=== PATIENT | male | born 1955 | race Caucasian/White ===

== ENCOUNTER 2019-05-22 07:21 | Inpatient (IN) | payer MEDICARE ==
[2019-05-22] MEDS ORDERED: Lorazepam 2 MG/ML VIAL ONE (08:01)
[2019-05-22 08:07] LABS: Lactic Acid 1.1 mmol/L (0.5-2.2)
[2019-05-22] MEDS ORDERED: Haloperidol Lactate 5 MG/ML VIAL ONE (08:10)
[2019-05-22 08:46] LABS: Actual Bicarbonate (HCO3a) 21.3 mEq/L (22-28); Analyzer IN Cardio ER; Base Excess (BEa) -1.2 mEq/L (-2.0 to +3.0); CO2 Tension 28.5 mmHg (35.0-45.0); Calcium, Ionized 1.16 mmol/L (1.12-1.30); Carboxyhemoglobin (COHb) 0.3 gm% (0.0-3.0); Hemoglobin (Hb) 10.7 g/dL (14.0-18.0); O2 Tension (PaO2) 92.1 mmHg (> 80.0); Potassium - ABG Lab 3.45 mmol/L (3.70-5.30); pH, Arterial 7.49 (7.35-7.45)
[2019-05-22 08:49] LABS: ALV-art Gradient 22.005 (0-20); Puncture Site RBRACH
[2019-05-22] MEDS ORDERED: Dextrose 5 % And 0.9 % NaCl 1,000 ML IV SCH ×2 (09:45→14:42)
[2019-05-22] MEDS ORDERED: Calcium Carbonate 500 MG ChewTAB PO PRN (10:22)
[2019-05-22] MEDS ORDERED: Bisacodyl 10 MG SUPP PR PRN (10:22)
[2019-05-22] MEDS ORDERED: Ondansetron ODT 4 MG TAB PO PRN (10:22)
[2019-05-22] MEDS ORDERED: Ondansetron PF 4 MG/2 ML Vial IVP PRN (10:22)
--- NOTE | 2019-05-22 10:23 | HP ---
PRIMARY CARE PHYSICIAN: Dr. Colmenares in [place]. CHIEF COMPLAINT: Transfer from [facility] for hospital admission. The patient currently resides at [facility]. HISTORY OF PRESENT ILLNESS: The patient is a 64-year-old male with alcoholic cirrhosis, hypertension, obesity, and chronic sacral wound, currently residing at [facility], presented to the emergency room with above complaints. The patient initially presented to [facility] and was transferred to this facility for hospital admission. The patient was admitted at [facility] in March of this year for infected sacral wound. Infectious Disease was consulted. He received aggressive wound care and was discharged on oral Levaquin to fpc facility. He was also started on Aldactone and was advised to follow up with GI as outpatient. The patient was sent to the emergency room for altered mentation. At this time , no history is available from the patient. The [facility] record does not have any HPI. It only has the labs and the imaging report. No family at the bedside. Per ER record, the patient was found to have altered mentation. He was walking down in the halls, confused. He was found to have elevated ammonia level. He received Zosyn and vancomycin and was transferred to this facility. His workup at [place] included a CBC that showed WBC of 10.4 with hemoglobin 10.9, hematocrit 30.5, and platelet count of 145. Ammonia of 101, it was 31 a month ago. Chemistry showed sodium 138, potassium 4, chloride 101, bicarb 22, BUN of 65, creatinine 1.49, glucose of 122, AST 27, ALT 21, protein of 6.5, bilirubin 1.1, alkaline phosphatase 106, lipase was 34. TSH was normal. INR 1.2 with PT of 15. Lactic acid 1.6. Urinalysis was negative for wbc or bacteria. CT head without contrast was negative for acute findings. CT scan of the abdomen and pelvis without contrast showed right perianal fistula without any evidence of osteomyelitis. It also showed cirrhosis with splenomegaly, ascites, and diffuse subcutaneous edema. He received vancomycin, 80 mg Protonix, IV fluids, 100 mcg fentanyl, Zosyn, 2 mg Haldol, and 20 g of lactulose. At this facility, he had ABG that showed pH of 7.49 with pCO2 28.5, bicarbonate 21.3, O2 saturation 92.1. His repeat lactic acid was 1.1. PAST MEDICAL HISTORY: From review of record, 1. Alcoholic cirrhosis. 2. Hypertension. 3. Morbid obesity. 4. History of cardiac arrhythmias, details unavailable. 5. Recurrent ascites, requiring paracentesis. 6. Chronic sacral wound stage IV. 7. CKD. 8. History of recurrent falls. PAST SURGICAL HISTORY: 1. Multiple paracentesis. 2. Tonsillectomy. ALLERGIES: THE PATIENT IS ALLERGIC TO CODEINE. CURRENT MEDICATIONS: At [facility], Benadryl as needed, Lasix 40 mg twice a day, metolazone 2.5 mg daily, midodrine 5 mg b.i.d., nystatin cream twice a day, Protonix 40 mg daily, prednisone 5 mg daily, and Aldactone 75 mg daily. SOCIAL HISTORY: The patient currently resides at [facility]. There is no history of smoking. He has a history of heavy alcohol use in the past per ER records. FAMILY HISTORY: Mother with fibromyalgia. CODE STATUS: Do not resuscitate at the nursing facility. This needs to be verified with the family. Please note that there are no family at the bedside. DPOA needs to be verified. REVIEW OF SYSTEMS: Cannot be obtained from the patient due to current cognitive status. PHYSICAL EXAMINATION: VITAL SIGNS: Current vital signs; temperature 98, respirations 20, pulse rate of 99, blood pressure of 139/69 with O2 saturation of 99% on room air. GENERAL: A 64-year-old male with altered mentation. He is in mild respiratory distress. HEENT: Head; atraumatic, normocephalic. Sclerae anicteric. Dry mucous membranes. No oral lesion. Pupils were 4 mm with good response to light. NECK: Supple. No JVD appreciated. No carotid bruit. LUNGS: Showed diminished air entry at bilateral bases. No wheezing, rales, or rhonchi. HEART: S1, S2 present. Tachycardic. No heaves or pulsation. ABDOMEN: Distended. There is fluid thrill. No rebound or guarding. Bowel sounds are present. EXTREMITIES: 2 to 3+ edema in bilateral lower extremity. SKIN: Warm and dry. 12 x 8 cm stage III sacral ulcer with small amount of purulent material noted in the sacral area per ER report. LYMPH NODES: No palpable lymph nodes in the neck. PERIPHERAL VASCULAR: Radial pulses palpable bilaterally. MUSCULOSKELETAL: No joint or swelling tenderness. LABORATORY FINDINGS: As discussed above. EKG by my review showed sinus tachycardia. Portable CXR ordered. IMPRESSION: 1. Toxic metabolic encephalopathy secondary to elevated ammonia/hepatic encephalopathy. 2. Infected sacral decubitus ulcer stage III with right perianal fistula. 3. Decompensated cirrhosis with splenomegaly, ascites, and diffuse anasarca. 4. Hypertension. 5. Chronic kidney disease stage 3. PLAN: The patient will be monitored on the telemetry unit. We will start him on lactulose if he is able to tolerate. If not, then we will consider NG tube or rectal lactulose. We will continue empiric antibiotics. Consult Wound Care. Consult Gastroenterology and Infectious Disease. ?paracentesis - will await GI input. Recheck labs in a.m. Monitor vancomycin level. Attempted to call the family with no answer. Palliative care team consultation. We will discuss the plan of care with the family when they arrive. Job ID: [id number] [facility]
--- NOTE | 2019-05-22 11:49 | RAD ---
Exam: Chest one view HISTORY:Altered mental status. Comparison: None FINDINGS: Cardiac silhouette:Normal Aorta: Slightly elongated Pulmonary vessels: Slightly prominent. Costophrenic angles: Clear LUNGS: Patchy interstitial opacities. Pneumothorax: None Osseous abnormalities: None IMPRESSION: Volume overload.
[2019-05-22 13:44] LABS: Anion Gap 18 mmol/L (10-20); BUN (Urea Nitrogen) 60 mg/dL (8.4-25.7); Calc. Creatinine Clearance 92 mL/min (70-130); Calcium 9.3 mg/dL (7.8-10.44); Carbon Dioxide 22 mmol/L (23-31); Chloride 103 mmol/L (98-107); Estimated GFR-MDRD 49; Glucose 116 mg/dL (80-115); Potassium 3.5 mmol/L (3.5-5.1); Sodium 139 mmol/L (136-145)
[2019-05-22] MEDS: Piperacillin/Tazobactam 3.375 GM in Sodium Chloride 0.9% 100 ML IVPB SCH ×2 (14:31→21:06)
[2019-05-22] MEDS ORDERED: Furosemide 100 MG in Sodium Chloride 0.9% 90 ML IVPB SCH (15:15)
[2019-05-22 15:30] LABS: #Eosinphils 0.1 thou/uL (0.0-0.7); #Lymphocytes 0.7 thou/uL (1.20-3.40); #Monocytes 0.8 thou/uL (0.11-0.59); #Neutrophils 7.4 thou/uL (1.40-6.50); %Basophils 0.1 % (0.0-1.0); %Eosinophils 1.2 % (0.0-10.0); %Lymphocytes 7.4 % (21.0-51.0); %Monocytes 9.4 % (0.0-10.0); %Neutrophils 81.9 % (42.0-75.0); Hemoglobin 9.9 g/dL (14.0-18.0); Mean Corpuscular Volume 93.9 fL (78.0-98.0); Mean Platelet Volume 6.3 fL (7.4-10.4); Platelet Count 125 thou/uL (130-400); RBC Distribution Width 12.7 % (11.5-14.5); Red Blood Cell (RBC) Count 3.09 mill/uL (4.70-6.10)
[2019-05-22 15:36] LABS: INR-International Normal Ratio 1.3; PTT 30.4 SEC (22.9-36.1); Prothrombin Time 15.9 SEC (12.0-14.7)
[2019-05-22] MEDS ORDERED: Lidocaine 1% PF 5 ML VIAL ONE (15:51)
[2019-05-22] MEDS ORDERED: Sodium Bicarbonate 2.5 MEQ/5 ML VIAL ONE (15:51)
[2019-05-22 18:15] LABS: BF Color Yellow; Body Fluid Source Ascites Body Fluid; Clarity Hazy (Clear); Tube # EDTA; WBC Background Count 0.01
[2019-05-22 18:16] LABS: RBC Background Count 0.001; WBC/NonHematic-Auto 232 /cumm
[2019-05-22 18:17] LABS: BF RBC Count - Manual 83 /cumm
[2019-05-22] MEDS: Dextrose 5 % And 0.9 % NaCl 1,000 ML IV SCH (18:26)
[2019-05-22 18:44] LABS: BF Segmented Neutrophils 11 %; Cell Count Non Hematic 59 %; Lymphocytes 30 %
[2019-05-22] MEDS: Enoxaparin Sodium 30 MG/0.3 ML SYRINGE SC SCH (21:06)
[2019-05-22] MEDS: Nystatin Powder 15 GM BOT TOP SCH (21:06)
[2019-05-22] MEDS: Pantoprazole 40 MG VIAL IVP SCH (21:06)
[2019-05-22] MEDS: Rifaximin 550 MG TAB PO SCH (21:06)
--- NOTE | 2019-05-23 00:25 | CON ---
DATE OF CONSULTATION: REASON FOR CONSULT: History of decompensated cirrhosis. HISTORY OF PRESENT ILLNESS: Mr. Montemayor is a 64-year-old gentleman who is transferred here from [facility] in [place] where he was transferred apparently from a skilled unit in [place] for confusion and abnormal behavior. He apparently was found confused, walking the halls. It seems that he typically gets his care at [facility]. He has been evaluated recently in the [place] ER apparently for cirrhosis, ascites, weakness, and falls and in March for wound infection and "abscess." He was apparently in the [place] [facility] facility when he was transferred to the ER sometime early this morning. In the emergency room, he was given Haldol and Ativan. His albumin was 3.7, AST and ALT were 27 and 21. Electrolytes were normal. Lipase was 34. INR was 1.2. White count was 10.4, hemoglobin was 10.6, platelet count was 145. CAT scan of the abdomen and pelvis showed splenomegaly, cirrhosis, ascites, bladder thickening, diverticulosis "right perianal fistula." He had a CAT scan of his brain, showed no acute findings. Apparently, there were no beds available at [facility], so he was transferred here. Apparently, he had blood cultures, wound cultures, occult blood test all drawn. TSH was normal. Troponins were negative. Urinalysis was negative. I have been asked to see him with regard to encephalopathy and cirrhosis. Presently, he is without complaints of pain. His ammonia was reported to be over 100, but I do not see that in any referring records. He is awake and knows some of his history, knows where he is, but he still remains a bit foggy. He denies any pain. Nurses report he has had 2 doses of lactulose, but has had no bowel movements yet. Per the admitting records, he received Zosyn and vancomycin in the emergency room in [place] before he was shipped here. The records keep referring to the fact that he may have had a perianal fistula. He is not aware of this. PAST MEDICAL HISTORY: 1. Cirrhosis. He reports he was a heavy drinker in the past. Denies any history of hepatitis. 2. Hypertension. 3. Morbid obesity. 4. History of ascites requiring paracentesis. It sounds like he does these at [facility]. 5. Chronic sacral wound, stage 4. 6. Chronic kidney disease. 7. History of recurrent falls. PAST SURGICAL HISTORY: He denies any abdominal surgery or rectal surgeries. He has had multiple paracenteses and tonsillectomies. ALLERGIES: CODEINE. CURRENT MEDICATIONS: At the [facility], he was receiving; 1. Benadryl. 2. Lasix 40 mg twice a day. 3. Metolazone 2.5 mg one time a day. 4. Midodrine 5 mg twice a day. 5. Nystatin. 6. Protonix. 7. Prednisone 5 mg. 8. Aldactone 25 mg. Does not seem he was on any lactulose or medications for encephalopathy. It is unclear if he is on those when he was in the outpatient setting. REVIEW OF SYSTEMS: Unable to be obtained. FAMILY HISTORY: Noncontributory. SOCIAL HISTORY: He was at [facility]. It is unclear how long he was there or where he was before that. The patient notes he was a heavy drinker in the past. PHYSICAL EXAMINATION: GENERAL: He is morbidly obese, lying in bed. He is in no distress. VITAL SIGNS: Temperature is 97.4. He has been afebrile. Pulse 105-108, blood pressure 143/71. HEENT: He has sainz facies. He has spider angioma on the chest. He has some temporal wasting, muscle wasting. LUNGS: Clear. HEART: Regular without clicks, rubs, or murmurs. ABDOMEN: Soft, very protuberant. Shifting dullness and fluid waves are present. There is no palpable hepatosplenomegaly. EXTREMITIES: Reveal edema and venous stasis. RECTAL: Reveals no overt fistulas or fissures in the anal vault. He has a huge ulcer of the skin which appears to be a large decubitus ulcer, which goes very close to the anorectal verge, but it does not seem to be a fistula tract here on my exam. IMAGING: Chest x-ray, possible volume overload. He has had a paracentesis, therapeutic. No studies were sent. ASSESSMENT: 1. Cirrhosis, presumptively alcohol-related, although it is unclear as the patient is not reliable. 2. Hepatic encephalopathy, probably worsened by Ativan given in the outside emergency room. It is unclear if he has had issues with this in the past. He does not know if he takes lactulose at home, but thinks he does. He was not getting it at the prison unit in [place]. He is mentating a little bit better now. He has had 2 doses of lactulose, he will need more. 3. A large decubitus ulcer and the referring records refer to a perirectal abscess or fistula. I do not detect this on my digital exam. I think this is probably all pressure ulcer in the skin, but it comes very close to the anorectal verge. We will ask the Surgery look at tomorrow to make sure that they do not think this is perirectal in origin. The nurses note they did not see any stool coming out of it. The base appears clear. He is going to need wound care as well. 4. Possible infection. He has received antibiotics, he had cultures in [place] and those will need to be checked. He was tapped, I will ask the Lab if they can order a cell count differential on that fluid. RECOMMENDATIONS: 1. Cell count differential on ascitic fluid. 2. Continue antibiotics. 3. diuretics to get a bit more clear picture of where he is hemodynamically, his BUN is 16 and creatinine 1.44. 4. We will add some Xifaxan to the lactulose and give him extra dose now. He should not receive any benzodiazepines unless he is having a seizure and needs to not be receiving any Benadryl or sedatives or narcotics. We will follow along with you. Job ID: [id number]
[2019-05-23] MEDS: Piperacillin/Tazobactam 3.375 GM in Sodium Chloride 0.9% 100 ML IVPB SCH ×4 (02:14→20:51)
[2019-05-23 06:24] LABS: #Eosinphils 0.2 thou/uL (0.0-0.7); #Lymphocytes 0.9 thou/uL (1.20-3.40); #Monocytes 1.1 thou/uL (0.11-0.59); #Neutrophils 7.7 thou/uL (1.40-6.50); %Basophils 0.2 % (0.0-1.0); %Eosinophils 1.6 % (0.0-10.0); %Lymphocytes 9.2 % (21.0-51.0); %Monocytes 11.3 % (0.0-10.0); %Neutrophils 77.7 % (42.0-75.0); Hemoglobin 10.3 g/dL (14.0-18.0); Mean Corpuscular HGB CONC 33.5 g/dL (32.0-36.0); Mean Corpuscular Hemoglobin 31.8 pg (27.0-31.0); Mean Corpuscular Volume 94.8 fL (78.0-98.0); Mean Platelet Volume 6.6 fL (7.4-10.4); Platelet Count 146 thou/uL (130-400); RBC Distribution Width 12.9 % (11.5-14.5); Red Blood Cell (RBC) Count 3.24 mill/uL (4.70-6.10); White Blood Cell (WBC) Count 9.9 thou/uL (4.8-10.8)
[2019-05-23 06:33] LABS: Hemoglobin A1c 4.8 % (4.0-6.0)
[2019-05-23 07:12] LABS: ALT (SGPT) 19 U/L (8-55); AST (SGOT) 25 U/L (5-34); Albumin 3.5 g/dL (3.4-4.8); Alkaline Phosphatase 94 U/L (40-150); Anion Gap 17 mmol/L (10-20); BUN (Urea Nitrogen) 50 mg/dL (8.4-25.7); Bilirubin, Total 1.8 mg/dL (0.2-1.2); Calc. Creatinine Clearance 83 mL/min (70-130); Calcium 9.3 mg/dL (7.8-10.44); Carbon Dioxide 21 mmol/L (23-31); Chloride 106 mmol/L (98-107); Estimated GFR-MDRD 47; Globulin 2.5 g/dL (2.4-3.5); Glucose 105 mg/dL (80-115); Magnesium 1.3 mg/dL (1.6-2.6); Phosphorus 3.8 mg/dL (2.3-4.7); Potassium 3.5 mmol/L (3.5-5.1); Sodium 140 mmol/L (136-145)
[2019-05-23 07:14] LABS: CRP (Inflammatory) 2.74 mg/dL (= or < 0.5)
[2019-05-23] MEDS ORDERED: Artificial Tears 18 DROP/0.9 ML EA EYE PRN (07:28)
[2019-05-23] MEDS ORDERED: Sodium Chloride 0.65% Nasal 44 ML BOT EA NARE PRN (07:28)
[2019-05-23] MEDS ORDERED: Cepastat Lozenges 1 LOZ PO PRN (07:28)
[2019-05-23] MEDS ORDERED: hydrALAZINE 20 MG/ML VIAL SLOW IVP PRN (07:28)
[2019-05-23 07:31] LABS: Ferritin 377.15 ng/mL (22-322)
[2019-05-23 07:45] LABS: HBCM Index 0.07 S/CO (0-0.79); HBSAg Index 0.27 S/CO (0-0.99); Hep A IgM AB Non-Reactive (NonReactive); Hep A IgM S/CO 0.08 S/CO (0-0.79); Hep B Surf Ag Non-Reactive S/CO (NonReactive); Hep C IgG Ab Non-Reactive (NonReactive); Hep C Index 0.12 S/CO (0-0.79); Hepatitis B Core IgM Abs Non-Reactive (NonReactive)
[2019-05-23] MEDS: Pantoprazole 40 MG VIAL IVP SCH ×2 (08:27→20:51)
[2019-05-23] MEDS: Rifaximin 550 MG TAB PO SCH ×2 (08:27→20:52)
[2019-05-23] MEDS: Nystatin Powder 15 GM BOT TOP SCH ×2 (08:28→20:52)
[2019-05-23] MEDS: Dextrose 5 % And 0.9 % NaCl 1,000 ML IV SCH ×2 (08:28→16:44)
--- NOTE | 2019-05-23 10:10 | ULT ---
ULTRASOUND GUIDED PARACENTESIS: HISTORY: Ascites. COMPARISON: None. FINDINGS: Successful ultrasound-guided paracentesis. A total of 3 liters of yellow-color ascites was aspirated . No immediate or postprocedure complication. TECHNIQUE: Consent was obtained to perform an ultrasound-guided paracentesis. The patient's abdomen was evaluat ed. Right lower quadrant was deemed appropriate. The skin was prepped and draped in a sterile fashi on. 1% Lidocaine, buffered with sodium bicarbonate, was used for local anesthesia. Under ultrasound guidance, a 5 cm 7 Swiss [employer] catheter was advanced into the peritoneal space. Via vacuum bottles, a total of 3 liters of yellow-color ascites was aspirated. The patient tolerated the procedure well . No immediate or postprocedure complication. IMPRESSION: Successful ultrasound-guided paracentesis. POS: OFF
--- NOTE | 2019-05-23 11:58 | CON ---
DATE OF CONSULTATION: 05/23/2019 REASON FOR CONSULTATION: Pressure areas with ulceration in the perianal region. HISTORY OF PRESENT ILLNESS: A 64-year-old with history of alcoholism, who reportedly stopped drinking large amounts of vodka just a few months ago. Also with liver cirrhosis, portal hypertension, ascites, and hepatic encephalopathy, who has developed a perianal wound. Reportedly, he had a surgical procedure done by his primary physician in [place], Dr. Chisholm. I do not have records of that procedure and we will try to contact Dr. Chisholm regarding it. He developed encephalopathy because he was unable to comply with his lactulose due to profuse diarrhea induced by the medication and he developed worsening altered mental status and was admitted. Previously, he had been admitted to [facility] for similar reason. He did have infected perianal wound and was treated with aggressive wound care and oral levofloxacin. Right now, he is status post paracentesis. He has been given lactulose 20 g four times daily. He also was given Zosyn. He is much more alert. He knows where he is. He follows commands, pleasant. Denies headaches. No visual symptoms, sore throat, odynophagia, or dysphagia. No cough or sputum production. No chest pain. No abdominal pain or back pain. He has minimal tenderness at the site of the ulcerated region. No genitourinary symptoms. 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 His mental status has improved markedly since admission. PAST MEDICAL HISTORY: Alcoholism with abstinence reported since February of this year, hypertension, obesity, liver cirrhosis with portal hypertension and hepatic encephalopathy, recurrent paracentesis for therapeutic reasons, perianal wound, and falls. ALLERGIES: CODEINE. MEDICATIONS: He is currently on; 1. Lactulose. 2. Zosyn. 3. DuoNeb. 4. Dulcolax. 5. Tums. 6. Lovenox. 7. Nystatin. 8. Zofran. 9. Protonix. 10. Rifaximin. FAMILY HISTORY: Fibromyalgia. SOCIAL HISTORY: He is currently a resident at [facility]. 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 Lives in [place] by himself. Never . PHYSICAL EXAMINATION: VITAL SIGNS: T-max 98.4, blood pressure 117/60, pulse 102, respirations 16, and O2 saturation 98. GENERAL: Appears in no distress. Knows where he is, knows the date. Sometimes , he gets the sequence of events a little bit wrong and misplaced, but for the most part his account is accurate. His speech appears to be normal. SKIN: Shows these wide area of ulceration in the right side of the gluteal region inner aspect abutting the perianal region with a 100% granulation with some undermining. This is markedly improved when compared with the findings noticeable at the recent [facility] admission, where photos could be compared. There is very little erythema around the area mostly maceration of the skin. Not true cellulitis. Does not have Mcdonald catheter. Has a peripheral IV access. No lymphadenopathy. Some areas with spider angiomata in the anterior chest. HEENT: Ocular movements conjugate. Sclerae white. Conjunctivae normal. Oral cavity with some missing teeth. Oral mucosa normal. NECK: Supple. No jugular vein distention. No carotid bruits. No thyromegaly. No neck tenderness. No shoulder tenderness. LUNGS: With symmetric clear breath sounds. No wheezing. HEART: S1 and S2. Regular rate. No S3 or S4. No murmurs. ABDOMEN: Distended with some ascites, but less than yesterday. No tenderness. No bladder distention. No organomegaly. No lower back tenderness. He is weak, but he is able to bear weight and stand up firmly. : His genital area appears normal. EXTREMITIES: There is evidence of osteoarthrosis in knees and ankles. There is a 2+ edema in lower extremities and some element of lymphedema as well as stasis and dermatitis. Pulses are diminished in dorsalis pedis, but that is probably from the edema. Some evidence of onychodystrophy. He is able to move extremities equally. He is diffusely weak, but no focal weakness. He knows his name. He knows where he is and the date and speech appears to be normal. Calculation normal. LABORATORY DATA: White cell count 9.0, hemoglobin 9.9, MCV 93, platelets 125 and now 146, and 81% neutrophils. INR is 1.3. Initial pH of 7.49, pCO2 of 29, and pO2 of 92. Sodium 140, creatinine is at 1.5, which seems to be his baseline. Ferritin 377. Bilirubin 1.8. Transaminases and alkaline phosphatase normal. Albumin 3.5. Ascites fluid with 232 wbc's with 11% neutrophils and 30% lymphocytes. Hepatitis serology was negative. Cultures from the ascites fluid with gram-negative rods with a few wbc's seen. This was in the Gram stain. The growth is no growth at 12 hours. The timing of the ascitic fluid submission was at 4:40 p.m. on 05/22 and first dose of Zosyn was given about 2 hours before that. This may affect the results of the cultures. ASSESSMENT: 1. Alcoholism with liver cirrhosis, portal hypertension, hepatic encephalopathy with intolerance to lactulose, and development of worsening of encephalopathy. 2. Perianal ulceration, which has markedly improved when compared with previous photos obtained from [facility]. 3. Positive Gram stain on ascitic fluid. DISCUSSION: The ulceration is markedly improved and there is no need for antimicrobial therapy or any other surgical intervention there, just continuation of wound care. The findings in the ascitic fluid will have to be treated even if the cultures result negative since the patient was given antimicrobials 2 hours before the cultures were obtained, that will reduce the sensitivity of the culture results and I would treat it with focus on the gram-negative kelby Gram stain results. The patient after discharge will have to continue on rifaximin because I do not think he will tolerate the lactulose, although the lactulose could be can be reduced eventually. Other issues to be addressed include portal hypertension. He will need prophylaxis for SBP and either Rifaximin or a quinolone would fit that role. Job ID: [id number] [facility]TDD
[2019-05-23] MEDS ORDERED: Adenosine 6 MG/2 ML VIAL ONE (12:22)
[2019-05-23] MEDS ORDERED: Prevnar 13-Val Conj/PF 0.5 ML SYRINGE IM ONE (12:30)
--- NOTE | 2019-05-23 12:42 | PDOC.PN ---
- Subjective Encounter Start Date: 05/23/19 Encounter Start Time: 10:10 -: old records requested/rev pt seen and evaluated twice today, first time during morning round and then again after johnny rodriguez called, this morning pt has diarrhoea, he is confused, he is very weak with code michael pt was having SVT - Objective Resuscitation Status - Order Detail: 05/22/19 14:18 Resuscitation Status Routine Resuscitation Status: DNAR: NO Resuscitation Discussed with: Palliative care confirmed with DPOA MAR Reviewed: Yes Vital Signs & Weight: Vital Signs (12 hours) Temp Pulse Resp BP BP Pulse Ox 05/23/19 12:00 98.3 F 126 H 18 90/54 L 98 05/23/19 10:56 166 H 16 96 05/23/19 08:28 98 05/23/19 07:39 97.9 F 102 H 16 117/60 98 05/23/19 07:14 110 H 16 05/23/19 05:04 111 H 19 127/61 96 05/23/19 03:14 98.1 F 111 H 14 118/57 L 99 Weight Weight 263 lb 3.2 oz I&O: 05/22/19 05/23/19 05/24/19 06:59 06:59 06:59 Intake Total 1340 Balance 1340 Result Diagrams: 05/23/19 05:33 05/23/19 05:33 Additional Labs: Accuchecks 05/23/19 05/22/19 05/22/19 05:32 23:49 18:34 POC Glucose 121 H 127 H 111 H Radiology Reviewed by me: Yes EKG Reviewed by me: Yes Phys Exam - Physical Examination Constitutional: NAD HEENT: PERRLA, moist MMs, sclera anicteric Neck: no JVD, supple Respiratory: no wheezing, no rales, no rhonchi Cardiovascular: RRR, no significant murmur, no rub Gastrointestinal: soft, non-tender, no distention, positive bowel sounds ascites+ Musculoskeletal: pulses present, edema present Neurological: non-focal, normal sensation Lymphatic: no nodes Psychiatric: normal affect Skin: normal turgor Dx/Plan (1) SVT (supraventricular tachycardia) Code(s): I47.1 - SUPRAVENTRICULAR TACHYCARDIA Status: Acute (2) Acute metabolic encephalopathy Code(s): G93.41 - METABOLIC ENCEPHALOPATHY Status: Acute (3) Anasarca Code(s): R60.1 - GENERALIZED EDEMA Status: Acute Comment: due to cirrhosis (4) Decubitus ulcer, stage 3 with infection Code(s): L89.93 - PRESSURE ULCER OF UNSPECIFIED SITE, STAGE 3; L08.9 - LOCAL INFECTION OF THE SKIN AND SUBCUTANEOUS TISSUE, UNSP Status: Acute (5) Alcoholic cirrhosis of liver with ascites Code(s): K70.31 - ALCOHOLIC CIRRHOSIS OF LIVER WITH ASCITES Status: Chronic (6) Anemia, normocytic normochromic Code(s): D64.9 - ANEMIA, UNSPECIFIED Status: Chronic (7) CKD (chronic kidney disease) stage 3, GFR 30-59 ml/min Code(s): N18.3 - CHRONIC KIDNEY DISEASE, STAGE 3 (MODERATE) Status: Chronic (8) GERD (gastroesophageal reflux disease) Code(s): K21.9 - GASTRO-ESOPHAGEAL REFLUX DISEASE WITHOUT ESOPHAGITIS Status: Chronic (9) Morbid obesity with BMI of 40.0-44.9, adult Code(s): E66.01 - MORBID (SEVERE) OBESITY DUE TO EXCESS CALORIES; Z68.41 - BODY MASS INDEX (BMI) 40.0-44.9, ADULT Status: Chronic - Plan cont current plan of care, continue antibiotics, 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 Review of Systems - Review of Systems ENT: negative: Ear Pain, Ear Discharge, Nose Pain, Nose Discharge, Nose Congestion, Mouth Pain, Mouth Swelling, Throat Pain, Throat Swelling, Other Respiratory: negative: Cough, Dry, Shortness of Breath, Hemoptysis, SOB with Excertion, Pleuritic Pain, Sputum, Wheezing Cardiovascular: negative: chest pain, palpitations, orthopnea, paroxysmal nocturnal dyspnea, edema, light headedness, other Gastrointestinal: negative: Nausea, Vomiting, Abdominal Pain, Diarrhea, Constipation, Melena, Hematochezia, Other Genitourinary: negative: Dysuria, Frequency, Incontinence, Hematuria, Retention , Other Musculoskeletal: negative: Neck Pain, Shoulder Pain, Arm Pain, Back Pain, Hand Pain, Leg Pain, Foot Pain, Other Other: not reliable due to encephalopathy - Medications/Allergies Allergies/Adverse Reactions: Allergies Allergy/AdvReac Type Severity Reaction Status Date / Time codeine Allergy Verified 05/22/19 11:56 Medications: Current Medications Albuterol/Ipratropium (Duoneb) 3 ml NEB [id number] [facility] Last Admin: 05/23/19 10:56 Dose: 3 ml Artificial Tears (Tears Naturale) 2 drop EA EYE PRN PRN PRN Reason: Dry Eyes Bisacodyl (Dulcolax) 10 mg MT DAILYPRN PRN PRN Reason: Constipation Calcium Carbonate (Tums) 1,000 mg PO Q4H PRN PRN Reason: Heartburn or Indigestion Enoxaparin Sodium (Lovenox) 30 mg SC 2100 [facility] Last Admin: 05/22/19 21:06 Dose: 30 mg Hydralazine HCl (Apresoline) 10 mg SLOW IVP Q4H PRN PRN Reason: SBP > 180 and HR < 70 Piperacillin Sod/Tazobactam (Sod 3.375 gm/ Sodium Chloride) 100 mls @ 200 mls/ hr IVPB Q6H [facility] Last Admin: 05/23/19 08:27 Dose: 100 mls Dextrose/Sodium Chloride (D5 0.9% Ns) 1,000 mls @ 75 mls/hr IV .[id number] [facility] Last Admin: 05/23/19 08:28 Dose: 1,000 mls Lactulose (Lactulose) 20 gm PO QID [facility] Last Admin: 05/23/19 11:48 Dose: Not Given Miscellaneous Medication (Pharmacy To Dose) 1 each IVPB PRN PRN PRN Reason: Pharmacy to dose: VANC Miscellaneous Medication (Pharmacy To Dose) 1 each IVPB PRN PRN PRN Reason: Pharmacy to dose Nystatin (Mycostatin Powder) 0 gm TOP BID [facility] Last Admin: 05/23/19 08:28 Dose: Not Given Ondansetron HCl (Zofran Odt) 4 mg PO Q6H PRN PRN Reason: Nausea/Vomiting Ondansetron HCl (Zofran) 4 mg IVP Q6H PRN PRN Reason: Nausea/Vomiting Pantoprazole Sodium (Protonix) 40 mg IVP Q12HR [facility] Last Admin: 05/23/19 08:27 Dose: 40 mg Rifaximin (Xifaxan) 550 mg PO BID [facility] Last Admin: 05/23/19 08:27 Dose: 550 mg Sodium Chloride (Flush - Normal Saline) 10 ml IVF PRN PRN PRN Reason: Saline Flush Sodium Chloride (Teller Nasal [place] 0.65%) 0 ml EA NARE QIDPRN PRN PRN Reason: Nasal Congestion Throat Lozenges (Cepastat Lozenges) 1 [place] PO Q2H PRN PRN Reason: Sore Throat
[2019-05-23 12:56] VITALS: BMI 40.0
[2019-05-23] MEDS ORDERED: Atenolol 25 MG TAB PO SCH (13:15)
--- NOTE | 2019-05-23 16:50 | CON ---
DATE OF CONSULTATION: 05/23/2019 HISTORY OF PRESENT ILLNESS: I am seeing Mr. 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 His problems are; 1. 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 2. Alcoholic cirrhosis associated with ascites, status post recent tap. 3. Morbid obesity. 4. Stage 4 sacral wound on antibiotics. 5. Chronic kidney disease. 6. Hypertension. ALLERGIES: CODEINE. MEDICATIONS: At home included; 1. Furosemide. 2. Midodrine. 3. Metolazone. 4. Guaifenesin. 5. Diphenhydramine. 6. Prednisone. 7. Spironolactone. 8. Pantoprazole. SUBJECTIVE: Mr. Montemayor is here with issues with mental status changes, admitted on the . His ammonia level was elevated. He underwent a paracentesis, has large ascites. He is also being treated for large perianal sacral wound. It seems from his discussion that he has been treated in the past for arrhythmias with metoprolol by his primary care physician Dr. Colmenares. He on telemetry developed recurrent episodes of SVTs of narrow complex. The P-wave seems to be closely following the QRS. He is minimally symptomatic in this regard, not aware of his rapid heart beats. He denies PND or orthopnea. No chest pain. No fever, chills, or cough. No neurological deficits at this time. He states he is hungry and wants to eat. Overall, a little interest in the arrhythmia issues so from him. On the other hand, seems to be alert and oriented at the time of my interview. Rest of 12-point system otherwise unremarkable. PAST MEDICAL HISTORY: Significant for cirrhosis likely alcohol-related, history is poorly reliable, hepatic encephalopathies now improving, and decubitus ulcer possibly infection. He has been hospitalized with mental status changes also in [place] and [place] and sacral ulcer. There is no obvious history of heart disease or heart attacks. SOCIAL HISTORY: The patient quit drinking recently. Large amount of vodka per history. FAMILY HISTORY: Not contributory. PAST SURGICAL HISTORY: Significant for abdominal surgery, rectal surgeries, multiple paracentesis and tonsillectomies in the past. OBJECTIVE DATA: VITAL SIGNS: Blood pressure currently 90/54, and heart rate is 160. Previous blood pressure is 117/60. GENERAL: Reveals alert and oriented man, morbidly obese, in no apparent distress. NECK: Supple. Jugular veins difficult to evaluate. CHEST: Coarse with crackles. HEART: Sounds are regular to rate and rhythm. No murmur or gallop. ABDOMEN: Benign. Bowel sounds positive. EXTREMITIES: Lower extremities without edema, clubbing, or cyanosis. Pulses are adequate. NEUROLOGIC: The patient is nonfocal. MUSCULOSKELETAL: No joint swelling or deformity. SKIN: Without rash. DATABASE: EKG is revealing initially sinus rhythm with a rate of 101 beats per minute. Low amplitude QRSs are seen. QTc 440 milliseconds and ND 158 milliseconds. Subsequent EKG reveals narrow complex tachycardia at rates of 166 beats per minute, P-waves possibly closely following the QRS as noted. Rhythm strips evaluated during adenosine injection reveals the same narrow complex SVT with P-waves following the QRS with adenosine termination of the SVT is noted. LABORATORY DATA: White cell count 9.9, hemoglobin 10.3, and platelet count is 146. INR is 1.3. Sodium 140, potassium 3.5, BUN is 50, creatinine 1.5, AST and ALT is 25 and 19, alkaline phosphatase 94, and ammonia was currently 42 to a normal range. ASSESSMENT AND PLAN: Mr. Montemayor is a 64-year-old man with history of alcoholic cirrhosis, ascites, some history of arrhythmias, although details not very well available. He may have been receiving metoprolol for this in the past. He likely has blood pressure issues, he is already on metolazone for supporting his blood pressure. He is now developing episodes of supraventricular tachycardia, which today was easily terminable with adenosine injection. I discussed the arrhythmias, which would include likely supraventricular tachycardia related to atrioventricular kofi reentrant tachycardia. Treatment options were also discussed, which include AV kofi blocking agents, possibly digoxin, although I detailed the difficulty of administering these agents in phase of his chronic hypotension. We also discussed option of ablative therapy. At this point, he is clearly not interested in this option. We will follow up with you. Thank you for allowing me to participate in the care this patient. Job ID: [id number]
[2019-05-23] MEDS ORDERED: Digoxin 0.5 MG/2 ML AMP SLOW IVP SCH (18:45)
[2019-05-23] MEDS: Midodrine HCl 5 MG TAB PO SCH (20:52)
[2019-05-23] MEDS: Enoxaparin Sodium 30 MG/0.3 ML SYRINGE SC SCH (20:52)
--- NOTE | 2019-05-24 00:30 | CON ---
DATE OF CONSULTATION: 05/23/2019 REASON FOR CONSULTATION: Tachycardia. HISTORY OF PRESENT ILLNESS: Mr. Montemayor is a 64-year-old gentleman. His predominant problem is cirrhosis with recurrent ascites. He has had recurrent episodes of tachycardia here including heart rates of 150 beats per minute, which have responded to adenosine. The patient has received much of his care he tells me at [facility]. The patient has had multiple paracentesis, this is outlined in the chart. The patient also has a sacral decubitus. PAST MEDICAL HISTORY: 1. Cirrhosis, likely alcohol-related. 2. Decubitus ulcer. SOCIAL HISTORY: Quit drinking recently. FAMILY HISTORY: Noncontributory. PAST SURGICAL HISTORY: Abdominal surgery, rectal surgery, multiple paracentesis. No chest pain or pressure. He has had rapid heart rates in the past, but responded to beta blockers, metoprolol in the past. MEDICATIONS: At home including; 1. Furosemide 40 mg twice a day. 2. Midodrine 5 mg twice a day. 3. Metolazone 2.5 mg a day. 4. Prednisone. 5. Spironolactone. 6. Pantoprazole. ALLERGIES: TO CODEINE. PHYSICAL EXAMINATION: GENERAL: This is a 64-year-old man. VITAL SIGNS: Blood pressure is averaging 90 systolic, pulse 90. HEENT: Eyes, sclerae are nonicteric. Mouth, mucous membranes are moist. NECK: Supple. No lymphadenopathy. LUNGS: Clear. CARDIAC: Normal S1, normal S2. I do not hear murmur, rub, or gallop. ABDOMEN: Obese and protuberant. EXTREMITIES: No clubbing or cyanosis. There is moderate to severe peripheral edema. PERTINENT LABORATORIES: Creatinine is 1.5, ferritin 377. Hemoglobin is 10.3. Looking at the rhythm strips, the patient has narrow complex regular supraventricular tachycardia which responds to adenosine. ASSESSMENT: 1. Cirrhosis, likely alcoholic with current need for paracentesis. 2. Hypotension, chronic. 3. Moderate renal insufficiency. Estimated GFR is 50. PLAN: 1. Dr. Solorzano spoke with the patient. The patient declines ablation. 2. Likely cannot use therapeutic doses of beta blockers or diltiazem due to the hypotension. We will give him intravenous digoxin tonight and then daily, use a low dose in view of the renal insufficiency. I explained to the patient that in all likelihood he would be having high probability of recurrent tachycardia with the medications. Job ID: [id number]
[2019-05-24] MEDS: Piperacillin/Tazobactam 3.375 GM in Sodium Chloride 0.9% 100 ML IVPB SCH ×4 (02:52→20:48)
[2019-05-24 03:23] LABS: #Eosinphils 0.4 thou/uL (0.0-0.7); #Lymphocytes 1.1 thou/uL (1.20-3.40); #Monocytes 1.2 thou/uL (0.11-0.59); #Neutrophils 6.5 thou/uL (1.40-6.50); %Basophils 0.5 % (0.0-1.0); %Lymphocytes 12.4 % (21.0-51.0); %Monocytes 12.7 % (0.0-10.0); %Neutrophils 70.5 % (42.0-75.0); Hemoglobin 8.7 g/dL (14.0-18.0); Mean Corpuscular HGB CONC 33.7 g/dL (32.0-36.0); Mean Corpuscular Hemoglobin 32.1 pg (27.0-31.0); Mean Corpuscular Volume 95.4 fL (78.0-98.0); Mean Platelet Volume 6.8 fL (7.4-10.4); Platelet Count 133 thou/uL (130-400); RBC Distribution Width 12.5 % (11.5-14.5); Red Blood Cell (RBC) Count 2.71 mill/uL (4.70-6.10); White Blood Cell (WBC) Count 9.2 thou/uL (4.8-10.8)
--- NOTE | 2019-05-24 03:42 | PDOC.EVN ---
Event Note - Event Note Event Note: Code green called as patient's BP was down. Patient asymptomatic. On arrival, SBP 80's and recheck on left arm SBP 90's. Reviewed record. Will give 500 cc bolus of NS. Daily labs pending. Patient has midodrine ordered already. However, BP was better on admission. Nurse reports his mental status has actually improved. He has also had several runs of SVT. He apparently declined ablation and had digoxin dose earlier in the evening. Stable rhythm now.
[2019-05-24] MEDS ORDERED: Sodium Chloride 0.9% 500 ML IVPB SCH ×2 (03:45→05:00)
[2019-05-24 03:50] LABS: ALT (SGPT) 15 U/L (8-55); AST (SGOT) 21 U/L (5-34); Albumin 2.9 g/dL (3.4-4.8); Alkaline Phosphatase 80 U/L (40-150); Anion Gap 12 mmol/L (10-20); BUN (Urea Nitrogen) 45 mg/dL (8.4-25.7); Calc. Creatinine Clearance 76 mL/min (70-130); Calcium 8.5 mg/dL (7.8-10.44); Carbon Dioxide 20 mmol/L (23-31); Chloride 104 mmol/L (98-107); Estimated GFR-MDRD 43; Globulin 2.2 g/dL (2.4-3.5); Glucose 114 mg/dL (80-115); Magnesium 1.2 mg/dL (1.6-2.6); Phosphorus 3.2 mg/dL (2.3-4.7); Potassium 3.4 mmol/L (3.5-5.1); Protein, Total 5.1 g/dL (5.8-8.1); Sodium 133 mmol/L (136-145)
[2019-05-24] MEDS ORDERED: Potassium Chloride 20 MEQ TAB PO SCH (08:00)
[2019-05-24] MEDS ORDERED: Magnesium Sulfate 3 GM in Sodium Chloride 0.9% 100 ML IVPB SCH (08:00)
--- NOTE | 2019-05-24 08:21 | CON ---
DATE OF CONSULTATION: 05/23/2019 REASON FOR CONSULTATION: Chronic sacral wound, stage 4, rule out perirectal fistulas. HISTORY OF PRESENT ILLNESS: Mr. Montemayor is a 64-year-old gentleman who is transferred here from [facility] Emergency Room. He was diagnosed with decompensated cirrhosis because he was confused/altered mental status. Patient has history of cirrhosis , chronic sacral wound. The patient was admitted to medical floor and treated. Mental status is stable. He was residing at [facility] and he was transferred to the ER sometime early this morning. In the emergency room, he was given Haldol and Ativan. His electrolyte was normal. INR was 1.2. He had a CAT scan of his brain with no acute findings. There were no bed available at [facility], so he was transferred here. Per admitting records, he received Zosyn and vancomycin in the emergency room at [place] before he was transferred here. The records keep referring to this fact that he may have had a perianal fistula, he is not aware of this. The CAT scan of abdomen and pelvis showed splenomegaly, cirrhosis, ascites, bladder thickening, diverticulosis, right perianal fistula. PAST MEDICAL HISTORY: 1. Cirrhosis. 2. Heavy drinker in the past. 3. Hypertension. 4. Morbid obesity. 5. History of ascites requiring paracentesis. 6. Chronic sacral wound, stage 4. 7. Chronic kidney disease. PAST SURGICAL HISTORY: Noncontributory. ALLERGIES: CODEINE. REVIEW OF SYSTEMS: Noncontributory except per his H and P. FAMILY HISTORY: Noncontributory. SOCIAL HISTORY: He was residing at [facility]. He was a heavy drinker in the past. PHYSICAL EXAMINATION: GENERAL: He is morbidly obese, lying in bed. He is in no distress. He is alert and oriented. VITAL SIGNS: Temperature is 98, pulse 31, respirations 19, O2 sat 98% on room air, blood pressure 93/50. HEENT: He has sainz face. He has spider angioma in the chest. LUNGS: Clear. HEART: Regular rate and rhythm. ABDOMEN: Soft, very protuberant. Shifting dullness and fluid waves are present. EXTREMITIES: Reveal edema and venous stasis. RECTAL: Reveals no overt fistulas or fissures in the anal vault. He has huge ulcer on the skin which appears to be a large decubitus ulcer, which goes very close to the anorectal verge, but it does not seem to have a fistula tract. IMAGING: Chest x-ray shows volume overload. ASSESSMENT: 1. Cirrhosis, decompensation. 2. Hepatic encephalopathy. 3. Large decubitus ulcer. 4. Possible infection. RECOMMENDATIONS: His sacral wound is clean with no apparent foreign bodies or stones. Minimal discharge. From General Surgical standpoint , Dr Hidalgo do not think of surgical indication at this time Recommend continue wound care, continue promote diet for appropriate nutrition status to promote wound healing. Job ID: [id number] [facility]
--- NOTE | 2019-05-24 08:44 | PRG ---
DATE OF SERVICE: 05/23/2019 SUBJECTIVE: Mr. Montemayor is much more awake today. He notes that he did not have any other underlying liver disease or alcoholic liver disease. The skin lesion in the bottom started off as a scratch and pressure ulcer and just worsened. He never had any perianal disease. He has not been on lactulose because of the severe diarrhea and he has gotten by on his Xifaxan for his encephalopathy. He does take diuretics on a daily basis, Aldactone 75 and furosemide 40 b.i.d. He had been on midodrine at times, he confirms this as well, and takes Xifaxan as well as metolazone. Medications today, he remains on D5 normal at 75, Lovenox, apresoline, Zofran, Protonix, Zosyn, rifaximin. PHYSICAL EXAMINATION: VITAL SIGNS: Temperature is 98.3, pulse 93, blood pressure 154/94, really 90s/50s. LABORATORY DATA: Microbiology; ascites showed few gram-negative rods. Cell count fluid shows white blood cells 232 with 11% segs. Hepatitis A, B, and C negative. No signs of hemochromatosis with low iron. Labs, ammonia 42, CRP was 2.7, albumin 3.5, sodium 140, potassium 3.5, BUN and creatinine 50 and 1.5, yesterday creatinine was 1.4. ASSESSMENT: 1. Cirrhosis, alcoholic liver disease. 2. No SBP by cell count criteria, but there are some gram-negative rods on his stain, so we will wait for those cultures. 3. Renal insufficiency, improved. 4. Ascites. 5. Hypotension, which seems like at his baseline, he takes midodrine at home. 6. History of SVT. 7. Hepatic encephalopathy, much improved. RECOMMENDATIONS: 1. Continue to monitor magnesium, replace as needed. 2. We will restart midodrine and then tomorrow restart diuretics, as his renal function continues to improve and go and stop his IV fluids at that time. Will ask the nurse to call over to [place] tomorrow to check on blood culture. Job ID: [id number]
[2019-05-24] MEDS: Digoxin 0.125 MG TAB PO SCH (08:56)
[2019-05-24] MEDS: Midodrine HCl 5 MG TAB PO SCH ×2 (08:57→20:50)
[2019-05-24] MEDS: Rifaximin 550 MG TAB PO SCH ×2 (08:58→20:50)
[2019-05-24] MEDS: Nystatin Powder 15 GM BOT TOP SCH ×2 (08:59→21:27)
[2019-05-24] MEDS: Pantoprazole 40 MG VIAL IVP SCH ×2 (08:59→20:49)
[2019-05-24] MEDS ORDERED: Atenolol 25 MG TAB PO SCH (09:00)
[2019-05-24] MEDS: Dextrose 5 % And 0.9 % NaCl 1,000 ML IV SCH (09:09)
--- NOTE | 2019-05-24 10:10 | PRG ---
DATE OF SERVICE: 05/24/2019 SUBJECTIVE: Mr. Montemayor is doing okay today. No complaints. OBJECTIVE: VITAL SIGNS: Did have some more SVT last night. Blood pressure is in the 90s systolic, pulse is in the 90s and sinus. He did have some more SVT. ABDOMEN: Ascites. EXTREMITIES: Edema is present. ASSESSMENT: 1. Cirrhosis with ascites. 2. Intermittent supraventricular tachycardia. 3. Hypotension, chronic. PLAN: 1. I do not believe he is going to be able to tolerate beta blockers. We will stop the beta blockers. 2. Continue to give him digoxin. 3. Would stop intravenous fluids. 4. Echocardiogram pending. Job ID: [id number]
--- NOTE | 2019-05-24 10:44 | PDOC.PN ---
- Subjective Encounter Start Date: 05/24/19 Encounter Start Time: 07:20 -: old records requested/rev pt has hypotension but asymptomatic, he does not want ablation to be done, - Objective Resuscitation Status - Order Detail: 05/22/19 14:18 Resuscitation Status Routine Resuscitation Status: DNAR: NO Resuscitation Discussed with: Palliative care confirmed with DPOA MAR Reviewed: Yes Vital Signs & Weight: Vital Signs (12 hours) Temp Pulse Pulse Pulse Pulse Pulse Resp 05/24/19 10:02 80 16 05/24/19 08:56 84 05/24/19 07:38 05/24/19 07:36 75 16 05/24/19 07:25 97.2 F L 106 H 18 05/24/19 03:08 79 83 80 101 H 05/24/19 02:56 98.2 F 104 H 15 05/24/19 01:52 81 18 05/24/19 00:00 05/23/19 23:00 85 18 BP BP BP BP BP BP BP 05/24/19 10:02 05/24/19 08:56 05/24/19 07:38 05/24/19 07:36 05/24/19 07:25 100/51 L 05/24/19 03:08 67/35 L 89/50 L 86/52 L 92/53 L 93/55 L 05/24/19 02:56 86/49 L 05/24/19 01:52 05/24/19 00:00 05/23/19 23:00 BP Pulse Ox 05/24/19 10:02 99 05/24/19 08:56 05/24/19 07:38 99 05/24/19 07:36 99 05/24/19 07:25 97 05/24/19 03:08 05/24/19 02:56 97 05/24/19 01:52 99 05/24/19 00:00 93/53 L 05/23/19 23:00 98 Weight Admit Weight 279 lb Weight 280 lb 12.8 oz I&O: 05/23/19 05/24/19 05/25/19 06:59 06:59 06:59 Intake Total 1340 2750 Output Total 225 Balance 1340 2525 Result Diagrams: 05/24/19 03:15 05/24/19 03:15 Additional Labs: Accuchecks 07/02/0705/23/19 05/23/19 05:21 23:58 18:22 POC Glucose 103 210 H 108 EKG Reviewed by me: Yes Phys Exam - Physical Examination Constitutional: NAD HEENT: PERRLA, moist MMs, sclera anicteric Neck: supple Respiratory: no wheezing, no rales, no rhonchi Cardiovascular: RRR, no significant murmur, no rub Gastrointestinal: soft, positive bowel sounds ascites+ Musculoskeletal: pulses present, edema present Neurological: non-focal, normal sensation Lymphatic: no nodes Psychiatric: normal affect, A&O x 3 Skin: normal turgor Dx/Plan (1) SVT (supraventricular tachycardia) Code(s): I47.1 - SUPRAVENTRICULAR TACHYCARDIA Status: Acute (2) Acute metabolic encephalopathy Code(s): G93.41 - METABOLIC ENCEPHALOPATHY Status: Acute (3) Anasarca Code(s): R60.1 - GENERALIZED EDEMA Status: Acute Comment: due to cirrhosis (4) Decubitus ulcer, stage 3 with infection Code(s): L89.93 - PRESSURE ULCER OF UNSPECIFIED SITE, STAGE 3; L08.9 - LOCAL INFECTION OF THE SKIN AND SUBCUTANEOUS TISSUE, UNSP Status: Acute (5) Alcoholic cirrhosis of liver with ascites Code(s): K70.31 - ALCOHOLIC CIRRHOSIS OF LIVER WITH ASCITES Status: Chronic (6) Anemia, normocytic normochromic Code(s): D64.9 - ANEMIA, UNSPECIFIED Status: Chronic (7) CKD (chronic kidney disease) stage 3, GFR 30-59 ml/min Code(s): N18.3 - CHRONIC KIDNEY DISEASE, STAGE 3 (MODERATE) Status: Chronic (8) GERD (gastroesophageal reflux disease) Code(s): K21.9 - GASTRO-ESOPHAGEAL REFLUX DISEASE WITHOUT ESOPHAGITIS Status: Chronic (9) Morbid obesity with BMI of 40.0-44.9, adult Code(s): E66.01 - MORBID (SEVERE) OBESITY DUE TO EXCESS CALORIES; Z68.41 - BODY MASS INDEX (BMI) 40.0-44.9, ADULT Status: Chronic - Plan cont current plan of care, 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 Review of Systems - Review of Systems Constitutional: weakness, malaise. negative: fever, chills, sweats, other ENT: negative: Ear Pain, Ear Discharge, Nose Pain, Nose Discharge, Nose Congestion, Mouth Pain, Mouth Swelling, Throat Pain, Throat Swelling, Other Respiratory: negative: Cough, Dry, Shortness of Breath, Hemoptysis, SOB with Excertion, Pleuritic Pain, Sputum, Wheezing Cardiovascular: edema Gastrointestinal: negative: Nausea, Vomiting, Abdominal Pain, Diarrhea, Constipation, Melena, Hematochezia, Other Genitourinary: negative: Dysuria, Frequency, Incontinence, Hematuria, Retention , Other Musculoskeletal: negative: Neck Pain, Shoulder Pain, Arm Pain, Back Pain, Hand Pain, Leg Pain, Foot Pain, Other - Medications/Allergies Allergies/Adverse Reactions: Allergies Allergy/AdvReac Type Severity Reaction Status Date / Time codeine Allergy Verified 05/22/19 11:56 Medications: Current Medications Albuterol/Ipratropium (Duoneb) 3 ml NEB [id number] [facility] Last Admin: 05/24/19 10:02 Dose: 3 ml Artificial Tears (Tears Naturale) 2 drop EA EYE PRN PRN PRN Reason: Dry Eyes Bisacodyl (Dulcolax) 10 mg [place] DAILYPRN PRN PRN Reason: Constipation Calcium Carbonate (Tums) 1,000 mg PO Q4H PRN PRN Reason: Heartburn or Indigestion Digoxin (Lanoxin) 0.125 mg PO DAILY [facility] Last Admin: 05/24/19 08:56 Dose: 0.125 mg Digoxin (Lanoxin) 0.125 mg SLOW IVP NOW [facility] Stop: 05/24/19 14:00 Enoxaparin Sodium (Lovenox) 30 mg SC 2100 [facility] Last Admin: 05/23/19 20:52 Dose: 30 mg Hydralazine HCl (Apresoline) 10 mg SLOW IVP Q4H PRN PRN Reason: SBP > 180 and HR < 70 Piperacillin Sod/Tazobactam (Sod 3.375 gm/ Sodium Chloride) 100 mls @ 200 mls/ hr IVPB Q6H [facility] Last Admin: 05/24/19 10:39 Dose: 100 mls Lactulose (Lactulose) 20 gm PO BID [facility] Last Admin: 05/24/19 08:59 Dose: Not Given Midodrine (Proamatine) 10 mg PO BID [facility] Miscellaneous Medication (Pharmacy To Dose) 1 each IVPB PRN PRN PRN Reason: Pharmacy to dose: VANC Miscellaneous Medication (Pharmacy To Dose) 1 each IVPB PRN PRN PRN Reason: Pharmacy to dose Nystatin (Mycostatin Powder) 0 gm TOP BID [facility] Last Admin: 05/24/19 08:59 Dose: Not Given Ondansetron HCl (Zofran Odt) 4 mg PO Q6H PRN PRN Reason: Nausea/Vomiting Ondansetron HCl (Zofran) 4 mg IVP Q6H PRN PRN Reason: Nausea/Vomiting Pantoprazole Sodium (Protonix) 40 mg IVP Q12HR [facility] Last Admin: 05/24/19 08:59 Dose: 40 mg Rifaximin (Xifaxan) 550 mg PO BID [facility] Last Admin: 05/24/19 08:58 Dose: 550 mg Sodium Chloride (Flush - Normal Saline) 10 ml IVF PRN PRN PRN Reason: Saline Flush Last Admin: 05/24/19 09:02 Dose: 10 ml Sodium Chloride ([place] Nasal [place] 0.65%) 0 ml EA NARE QIDPRN PRN PRN Reason: Nasal Congestion Throat Lozenges (Cepastat Lozenges) 1 panchito PO Q2H PRN PRN Reason: Sore Throat
--- NOTE | 2019-05-24 11:44 | PDOC.CTH ---
Cardiology Progress Note - Subjective EP PROGRESS NOTE: 05/24/19 Follow up for arrhythmia management. Patient DNR. No new cardiac complaints today. - Objective Vital Signs Temp Pulse Pulse Pulse Pulse Pulse Resp 05/24/19 11:17 05/24/19 10:02 80 16 05/24/19 08:56 84 05/24/19 07:38 05/24/19 07:36 75 16 05/24/19 07:25 97.2 F L 106 H 18 05/24/19 07:20 05/24/19 03:08 79 83 80 101 H 05/24/19 02:56 98.2 F 104 H 15 05/24/19 01:52 81 18 05/24/19 00:00 BP BP BP BP BP BP BP 05/24/19 11:17 107/55 L 119/60 05/24/19 10:02 05/24/19 08:56 05/24/19 07:38 05/24/19 07:36 05/24/19 07:25 05/24/19 07:20 05/24/19 03:08 67/35 L 89/50 L 86/52 L 92/53 L 93/55 L 05/24/19 02:56 05/24/19 01:52 05/24/19 00:00 BP BP BP Pulse Ox 05/24/19 11:17 05/24/19 10:02 99 05/24/19 08:56 05/24/19 07:38 99 05/24/19 07:36 99 05/24/19 07:25 100/51 L 97 05/24/19 07:20 97 05/24/19 03:08 05/24/19 02:56 86/49 L 97 05/24/19 01:52 99 05/24/19 00:00 93/53 L Admit Weight 279 lb Weight 280 lb 12.8 oz 05/23/19 05/24/19 05/25/19 06:59 06:59 06:59 Intake Total 1340 2750 Output Total 225 Balance 1340 2525 - Physical Examination General/Neuro: alert & oriented x3, NAD Neck: carotid US brisk, no JVD present Lungs: unlabored respirations Heart: RRR Abdomen: soft - Telemetry Telemetry Rhythm: SR - Labs Result Diagrams: 05/24/19 03:15 05/24/19 03:15 - Assessment/Plan 1. SVT - easily terminated with adenosine IVP - likely AVNRT - still having paroxysmal episodes, asymptomatic - Dig PO started - Prefer atenolol over metoprolol if needed for further rate control and if BP will tolerate. 2. Alcoholic cirrhosis, with ascites 3. Morbid obesity 4.Sacral pressure ulcer -recently rated at stage 4 5. CKD 6. Hypotension -on midodrine Declined EPS with ablation for SVT. Opts for medical management. Started on PO digoxin. Likely will not tolerate BB or CCB therapy with hypotension issues. SVT better controlled since yesterday and into this AM. EP signing off. Please call if further input is desired.
[2019-05-24] MEDS ORDERED: Digoxin 0.5 MG/2 ML AMP SLOW IVP SCH (12:00)
[2019-05-24 16:24] LABS: ANA Symphony (Qualitative) Negative (Negative); ANA Symphony (Quantitative) 0.2 Ratio (< 0.7 Negative); dsDNA IgG Antibody 1.5 IU/mL (<10 Negative)
--- NOTE | 2019-05-24 18:51 | PRG ---
DATE OF SERVICE: 05/24/2019 SUBJECTIVE: Mr. Montemayor has had some issues with ventricular tachycardia that resolved. He was seen by EP and they discussed possible ablation, but he refused that. Otherwise, he is feeling much better. He is not taking lactulose. OBJECTIVE: VITAL SIGNS: Temperature is 98, pulse 72, blood pressure 107/75. GENERAL: He is a little bit pale. He is overweight. He is alert and oriented to person, place, time. ABDOMEN: He has shifting dullness and fluid wave. EXTREMITIES: Reveal edema. LABORATORY DATA: White count is 9.2, hemoglobin is 8.7, platelet count 133. INR 1.3 on the 1st. Sodium 133, potassium 3.4, BUN and creatinine are 45 and 1.36. The BUN continues to trend down. His creatinine continues to trend up from 1.44 to 1.5 to 1.63 today. Albumin is 2.9. Serology A, B, and C are negative. AFP normal. LB negative. ASSESSMENT: 1. Cirrhosis alcoholic related decompensated. 2. Large skin infection in the perianal area, but there is no evidence of perianal abscess. 3. No signs of spontaneous bacterial peritonitis. The Gram stain showed some gram-negative rods. The absolute neutrophil count was low and cultures were ultimately negative. 4. History of hypotension, requiring now midodrine in the outpatient setting. 5. Admitted with encephalopathy, resolved now. It is unclear if he had a little bit of infection and so far cultures have been negative. Results from [facility] are pending. RECOMMENDATIONS: 1. With worsening creatinine, would go ahead and place him on some albumin IV q.8. He is refusing the lactulose. We are going to stop that. He is on Xifaxan and this will be called, he takes at home. Continue midodrine. Once BUN and creatinine are stabilized, reinstitute diuretics. 2. Consider discontinuing antibiotics if cultures from [facility] in [place] are negative as the cultures here have been negative and it could be that the Zosyn is contributing to renal dysfunction. Job ID: [id number]
[2019-05-24] MEDS: Enoxaparin Sodium 30 MG/0.3 ML SYRINGE SC SCH (20:49)
[2019-05-24] MEDS: Albumin 25% 25 GM/100 ML BOT IVPB SCH (20:51)
[2019-05-25] MEDS: Albumin 25% 25 GM/100 ML BOT IVPB SCH ×3 (02:46→20:08)
[2019-05-25] MEDS: Piperacillin/Tazobactam 3.375 GM in Sodium Chloride 0.9% 100 ML IVPB SCH (02:46)
[2019-05-25 04:58] LABS: Anion Gap 13 mmol/L (10-20); BUN (Urea Nitrogen) 38 mg/dL (8.4-25.7); Calc. Creatinine Clearance 99 mL/min (70-130); Calcium 8.5 mg/dL (7.8-10.44); Carbon Dioxide 20 mmol/L (23-31); Chloride 103 mmol/L (98-107); Estimated GFR-MDRD 53; Glucose 104 mg/dL (80-115); Magnesium 1.7 mg/dL (1.6-2.6); Phosphorus 3.3 mg/dL (2.3-4.7); Potassium 3.9 mmol/L (3.5-5.1); Sodium 132 mmol/L (136-145)
[2019-05-25] MEDS: Digoxin 0.125 MG TAB PO SCH (09:28)
[2019-05-25] MEDS: Midodrine HCl 5 MG TAB PO SCH ×2 (09:29→20:15)
[2019-05-25] MEDS: Rifaximin 550 MG TAB PO SCH ×2 (09:29→20:15)
[2019-05-25] MEDS: Nystatin Powder 15 GM BOT TOP SCH ×2 (09:31→20:15)
--- NOTE | 2019-05-25 10:39 | PDOC.PN ---
- Subjective Encounter Start Date: 05/25/19 Encounter Start Time: 07:20 Patient seen and examined. No new complaints. No overnight events - Objective Resuscitation Status - Order Detail: 05/22/19 14:18 Resuscitation Status Routine Resuscitation Status: DNAR: NO Resuscitation Discussed with: Palliative care confirmed with DPOA MAR Reviewed: Yes Vital Signs & Weight: Vital Signs (12 hours) Temp Pulse Resp BP BP Pulse Ox 05/25/19 09:28 75 05/25/19 07:41 98.8 F 78 18 99/54 L 98 05/25/19 04:48 98.1 F 89 16 89/51 L 97 05/25/19 02:32 75 16 98 05/25/19 00:00 88/49 L 05/24/19 23:40 81 20 98 Weight Admit Weight 279 lb Weight 290 lb I&O: 05/24/19 05/25/19 05/26/19 06:59 06:59 06:59 Intake Total 2750 1050 Output Total 225 600 Balance 2525 450 Result Diagrams: 05/24/19 03:15 05/25/19 04:14 Additional Labs: Accuchecks 05/25/19 05/24/19 05:30 17:01 POC Glucose 98 119 H EKG Reviewed by me: Yes Phys Exam - Physical Examination Constitutional: NAD HEENT: PERRLA, moist MMs, sclera anicteric Neck: no JVD, supple Respiratory: no wheezing, no rales, no rhonchi Cardiovascular: RRR, no rub Gastrointestinal: soft, non-tender, positive bowel sounds ascites+ Musculoskeletal: edema present Neurological: non-focal, normal sensation Psychiatric: normal affect, A&O x 3 Skin: normal turgor Dx/Plan (1) Acute metabolic encephalopathy Code(s): G93.41 - METABOLIC ENCEPHALOPATHY Status: Resolved (2) SVT (supraventricular tachycardia) Code(s): I47.1 - SUPRAVENTRICULAR TACHYCARDIA Status: Resolved (3) Anasarca Code(s): R60.1 - GENERALIZED EDEMA Status: Acute Comment: due to cirrhosis (4) Decubitus ulcer, stage 3 with infection Code(s): L89.93 - PRESSURE ULCER OF UNSPECIFIED SITE, STAGE 3; L08.9 - LOCAL INFECTION OF THE SKIN AND SUBCUTANEOUS TISSUE, UNSP Status: Chronic (5) Alcoholic cirrhosis of liver with ascites Code(s): K70.31 - ALCOHOLIC CIRRHOSIS OF LIVER WITH ASCITES Status: Chronic (6) Anemia, normocytic normochromic Code(s): D64.9 - ANEMIA, UNSPECIFIED Status: Chronic (7) CKD (chronic kidney disease) stage 3, GFR 30-59 ml/min Code(s): N18.3 - CHRONIC KIDNEY DISEASE, STAGE 3 (MODERATE) Status: Chronic (8) GERD (gastroesophageal reflux disease) Code(s): K21.9 - GASTRO-ESOPHAGEAL REFLUX DISEASE WITHOUT ESOPHAGITIS Status: Chronic (9) Morbid obesity with BMI of 40.0-44.9, adult Code(s): E66.01 - MORBID (SEVERE) OBESITY DUE TO EXCESS CALORIES; Z68.41 - BODY MASS INDEX (BMI) 40.0-44.9, ADULT Status: Chronic - Plan cont current plan of care * will dc antibiotics * renal function better after albumin * continue midodrin * will get culture result * medication reviewed as below * symptomatic treatment * expecting discharge soon * if BP permits, will start diuretic therapy. Review of Systems - Review of Systems ENT: negative: Ear Pain, Ear Discharge, Nose Pain, Nose Discharge, Nose Congestion, Mouth Pain, Mouth Swelling, Throat Pain, Throat Swelling, Other Respiratory: negative: Cough, Dry, Shortness of Breath, Hemoptysis, SOB with Excertion, Pleuritic Pain, Sputum, Wheezing Cardiovascular: edema. negative: chest pain, palpitations, orthopnea, paroxysmal nocturnal dyspnea, light headedness, other Gastrointestinal: negative: Nausea, Vomiting, Abdominal Pain, Diarrhea, Constipation, Melena, Hematochezia, Other Genitourinary: negative: Dysuria, Frequency, Incontinence, Hematuria, Retention , Other Musculoskeletal: negative: Neck Pain, Shoulder Pain, Arm Pain, Back Pain, Hand Pain, Leg Pain, Foot Pain, Other - Medications/Allergies Allergies/Adverse Reactions: Allergies Allergy/AdvReac Type Severity Reaction Status Date / Time codeine Allergy Verified 05/22/19 11:56 Medications: Current Medications Albumin Human (Albumin 25%) 25 gm IVPB 0400,1200,2000 [facility] Stop: 05/25/19 20:01 Last Admin: 05/25/19 02:46 Dose: 25 gm Albuterol/Ipratropium (Duoneb) 3 ml NEB [id number] Last Admin: 05/25/19 08:15 Dose: Not Given Artificial Tears (Tears Naturale) 2 drop EA EYE PRN PRN PRN Reason: Dry Eyes Bisacodyl (Dulcolax) 10 mg [place] DAILYPRN PRN PRN Reason: Constipation Calcium Carbonate (Tums) 1,000 mg PO Q4H PRN PRN Reason: Heartburn or Indigestion Digoxin (Lanoxin) 0.125 mg PO DAILY [facility] Last Admin: 05/25/19 09:28 Dose: 0.125 mg Enoxaparin Sodium (Lovenox) 30 mg SC 2100 [facility] Last Admin: 05/24/19 20:49 Dose: 30 mg Hydralazine HCl (Apresoline) 10 mg SLOW IVP Q4H PRN PRN Reason: SBP > 180 and HR < 70 Midodrine (Proamatine) 10 mg PO BID [facility] Last Admin: 05/25/19 09:29 Dose: 10 mg Nystatin (Mycostatin Powder) 0 gm TOP BID [facility] Last Admin: 05/25/19 09:31 Dose: Not Given Ondansetron HCl (Zofran Odt) 4 mg PO Q6H PRN PRN Reason: Nausea/Vomiting Ondansetron HCl (Zofran) 4 mg IVP Q6H PRN PRN Reason: Nausea/Vomiting Pantoprazole Sodium (Protonix) 40 mg PO DAILY [facility] Last Admin: 05/25/19 09:28 Dose: 40 mg Rifaximin (Xifaxan) 550 mg PO BID [facility] Last Admin: 05/25/19 09:29 Dose: 550 mg Sodium Chloride (Flush - Normal Saline) 10 ml IVF PRN PRN PRN Reason: Saline Flush Last Admin: 05/24/19 12:57 Dose: 10 ml Sodium Chloride ([place] Nasal [place] 0.65%) 0 ml EA NARE QIDPRN PRN PRN Reason: Nasal Congestion Throat Lozenges (Cepastat Lozenges) 1 panchito PO Q2H PRN PRN Reason: Sore Throat
[2019-05-25 15:08] LABS: Alpha-1-Antitrypsin 194 mg/dL (90-200)
[2019-05-25] MEDS: Enoxaparin Sodium 30 MG/0.3 ML SYRINGE SC SCH (20:15)
--- NOTE | 2019-05-25 21:44 | PRG ---
DATE OF SERVICE: 05/25/2019 SUBJECTIVE: Mr. Montemayor feels well. He is without complaints. He is getting his IV albumin. OBJECTIVE: VITAL SIGNS: Temperature is 98, pulse 82, blood pressure 123/58. He was 119/60 yesterday evening. GENERAL: He has anasarca and edema, pitting, 3+ in his legs. LABORATORY DATA: No CBC today. Sodium was 132, potassium 3.8, BUN 38 down from 45, creatinine 1.34 down from 1.36. ASSESSMENT: 1. Cirrhosis. 2. Supraventricular tachycardia. The patient has decided to decline intervention. 3. Hepatic encephalopathy on admission, possibly related to medications. 4. No evidence of SBP. 5. Decubitus ulcer, advanced. 6. Morbid obesity. PLAN: 1. Agree with stopping the antibiotics. Albumin is complete. 2. We will start the patient's diuretics back tomorrow. Job ID: [id number]
[2019-05-26] MEDS ORDERED: Furosemide 40 MG TAB PO SCH (07:30)
[2019-05-26] MEDS: Rifaximin 550 MG TAB PO SCH (07:47)
[2019-05-26] MEDS: Midodrine HCl 5 MG TAB PO SCH (07:47)
[2019-05-26] MEDS: Nystatin Powder 15 GM BOT TOP SCH (07:48)
[2019-05-26] MEDS: Digoxin 0.125 MG TAB PO SCH (07:48)
[2019-05-26] MEDS ORDERED: Spironolactone 100 MG TAB PO SCH (08:00)
--- NOTE | 2019-05-26 09:24 | PRG ---
DATE OF SERVICE: 05/26/2019 SUBJECTIVE: Mr. Montemayor sitting up in the chair with his feet elevated. No chest pain or pressure. He has not been having any further tachycardia. OBJECTIVE: VITAL SIGNS: His blood pressure is 107/54 on the 3rd. There is also a blood pressure 102/52 earlier. LUNGS: Clear. CARDIAC: Normal S1. Normal S2. ABDOMEN: Distended with ascites. EXTREMITIES: Severe edema. ASSESSMENT: 1. Cirrhosis. 2. Relatively hypotensive. 3. 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 4. He is anemic. Hemoglobin is 8.7. 5. Renal insufficiency. Creatinine 1.34 and GFR is 53. PLAN: 1. The patient is on digoxin 0.125 mg a day. 2. We recommends checking the digoxin level next week. 3. We will sign off, otherwise. Please re-consult if needed. Job ID: [id number]
--- NOTE | 2019-05-26 11:14 | PDOC.PN ---
- Subjective Encounter Start Date: 05/26/19 Encounter Start Time: 07:20 Patient seen and examined. No new complaints. No overnight events - Objective Resuscitation Status - Order Detail: 05/22/19 14:18 Resuscitation Status Routine Resuscitation Status: DNAR: NO Resuscitation Discussed with: Palliative care confirmed with DPOA MAR Reviewed: Yes Vital Signs & Weight: Vital Signs (12 hours) Temp Pulse Resp BP BP Pulse Ox 05/26/19 07:48 113 H 05/26/19 07:40 98.2 F 103 H 18 111/59 L 97 05/26/19 07:01 83 12 05/26/19 03:15 98.1 F 91 18 102/52 L 97 05/26/19 00:00 92 Weight Admit Weight 279 lb Weight 290 lb I&O: 05/25/19 05/26/19 05/27/19 06:59 06:59 06:59 Intake Total 1050 350 Output Total 600 Balance 450 350 Result Diagrams: 05/24/19 03:15 05/25/19 04:14 Additional Labs: Accuchecks 05/26/19 05/25/19 05/25/19 05:25 23:55 12:33 POC Glucose 103 129 H 121 H EKG Reviewed by me: Yes Phys Exam - Physical Examination Constitutional: NAD HEENT: PERRLA, moist MMs, sclera anicteric Neck: no JVD, supple Respiratory: no wheezing, no rales, no rhonchi Cardiovascular: RRR, no significant murmur, no rub Gastrointestinal: soft ascites+ Musculoskeletal: pulses present, edema present Neurological: non-focal, normal sensation Lymphatic: no nodes Psychiatric: normal affect, A&O x 3 Skin: no rash, normal turgor Dx/Plan (1) Acute metabolic encephalopathy Code(s): G93.41 - METABOLIC ENCEPHALOPATHY Status: Resolved (2) SVT (supraventricular tachycardia) Code(s): I47.1 - SUPRAVENTRICULAR TACHYCARDIA Status: Resolved (3) Anasarca Code(s): R60.1 - GENERALIZED EDEMA Status: Acute Comment: due to cirrhosis (4) Decubitus ulcer, stage 3 with infection Code(s): L89.93 - PRESSURE ULCER OF UNSPECIFIED SITE, STAGE 3; L08.9 - LOCAL INFECTION OF THE SKIN AND SUBCUTANEOUS TISSUE, UNSP Status: Chronic (5) Alcoholic cirrhosis of liver with ascites Code(s): K70.31 - ALCOHOLIC CIRRHOSIS OF LIVER WITH ASCITES Status: Chronic (6) Anemia, normocytic normochromic Code(s): D64.9 - ANEMIA, UNSPECIFIED Status: Chronic (7) CKD (chronic kidney disease) stage 3, GFR 30-59 ml/min Code(s): N18.3 - CHRONIC KIDNEY DISEASE, STAGE 3 (MODERATE) Status: Chronic (8) GERD (gastroesophageal reflux disease) Code(s): K21.9 - GASTRO-ESOPHAGEAL REFLUX DISEASE WITHOUT ESOPHAGITIS Status: Chronic (9) Morbid obesity with BMI of 40.0-44.9, adult Code(s): E66.01 - MORBID (SEVERE) OBESITY DUE TO EXCESS CALORIES; Z68.41 - BODY MASS INDEX (BMI) 40.0-44.9, ADULT Status: Chronic - Plan cont current plan of care * lasix and aldactone started * medication reviewed as below * symptomatic treatment * discharge soon pending GI OK Review of Systems - Review of Systems ENT: negative: Ear Pain, Ear Discharge, Nose Pain, Nose Discharge, Nose Congestion, Mouth Pain, Mouth Swelling, Throat Pain, Throat Swelling, Other Respiratory: negative: Cough, Dry, Shortness of Breath, Hemoptysis, SOB with Excertion, Pleuritic Pain, Sputum, Wheezing Cardiovascular: edema Gastrointestinal: negative: Nausea, Vomiting, Abdominal Pain, Diarrhea, Constipation, Melena, Hematochezia, Other Genitourinary: negative: Dysuria, Frequency, Incontinence, Hematuria, Retention , Other Musculoskeletal: negative: Neck Pain, Shoulder Pain, Arm Pain, Back Pain, Hand Pain, Leg Pain, Foot Pain, Other - Medications/Allergies Allergies/Adverse Reactions: Allergies Allergy/AdvReac Type Severity Reaction Status Date / Time codeine Allergy Verified 05/22/19 11:56 Medications: Current Medications Albuterol/Ipratropium (Duoneb) 3 ml NEB [id number] Last Admin: 05/26/19 07:01 Dose: 3 ml Artificial Tears (Tears Naturale) 2 drop EA EYE PRN PRN PRN Reason: Dry Eyes Bisacodyl (Dulcolax) 10 mg [place] DAILYPRN PRN PRN Reason: Constipation Calcium Carbonate (Tums) 1,000 mg PO Q4H PRN PRN Reason: Heartburn or Indigestion Digoxin (Lanoxin) 0.125 mg PO DAILY [facility] Last Admin: 05/26/19 07:48 Dose: 0.125 mg Enoxaparin Sodium (Lovenox) 30 mg SC 2100 [facility] Last Admin: 05/25/19 20:15 Dose: 30 mg Furosemide (Lasix) 40 mg PO DAILY-AC [facility] Last Admin: 05/26/19 07:47 Dose: 40 mg Hydralazine HCl (Apresoline) 10 mg SLOW IVP Q4H PRN PRN Reason: SBP > 180 and HR < 70 Midodrine (Proamatine) 10 mg PO BID [facility] Last Admin: 05/26/19 07:47 Dose: 10 mg Nystatin (Mycostatin Powder) 0 gm TOP BID [facility] Last Admin: 05/26/19 07:48 Dose: Not Given Ondansetron HCl (Zofran Odt) 4 mg PO Q6H PRN PRN Reason: Nausea/Vomiting Ondansetron HCl (Zofran) 4 mg IVP Q6H PRN PRN Reason: Nausea/Vomiting Pantoprazole Sodium (Protonix) 40 mg PO DAILY [facility] Last Admin: 05/26/19 07:47 Dose: 40 mg Rifaximin (Xifaxan) 550 mg PO BID [facility] Last Admin: 05/26/19 07:47 Dose: 550 mg Sodium Chloride (Flush - Normal Saline) 10 ml IVF PRN PRN PRN Reason: Saline Flush Last Admin: 05/25/19 20:08 Dose: 10 ml Sodium Chloride ([place] Nasal [place] 0.65%) 0 ml EA NARE QIDPRN PRN PRN Reason: Nasal Congestion Spironolactone (Aldactone) 100 mg PO QAM-WM [facility] Last Admin: 05/26/19 07:47 Dose: 100 mg Throat Lozenges (Cepastat Lozenges) 1 panchito PO Q2H PRN PRN Reason: Sore Throat
--- NOTE | 2019-05-26 12:56 | DIS ---
DATE OF ADMISSION: 05/22/2019 DATE OF DISCHARGE: 05/26/2019 PRIMARY CARE PHYSICIAN: [facility] Call admission. DISCHARGE DISPOSITION: [facility]. PRIMARY DISCHARGE DIAGNOSES: Anasarca, hypokalemia, hypomagnesemia, hypotension, SVT, acute metabolic encephalopathy. SECONDARY DISCHARGE DIAGNOSES: Gastroesophageal reflux disease, decubitus ulcer stage III present on admission, chronic kidney disease stage 3, normocytic normochromic anemia, alcoholic cirrhosis of liver with ascites. PRIMARY PROCEDURE/OPERATION: Paracentesis. RADIOLOGICAL INVESTIGATION: Chest x-ray, echocardiography. SIGNIFICANT LABORATORY DATA: Hemoglobin 8.7. INR 1.3. Creatinine 1.34. Ammonia 38. Alpha-1 antitrypsin 194. Alpha-fetoprotein level 2.9. Cortisol 5.50. DISCHARGE MEDICATIONS: 1. Digoxin 0.125 mg p.o. daily. 2. Lasix 40 mg p.o. daily. 3. Midodrine 10 mg p.o. b.i.d. 4. Protonix 40 mg p.o. daily. 5. Aldactone 100 mg p.o. daily. 6. Lactulose 20 g p.o. daily. CONTRAINDICATION: None. CODE STATUS: DNR. 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 Dr. Smiley was following while in hospital. Dr. Macias was consulted while in hospital. TEST RESULT PENDING ON DISCHARGE: None. ALLERGIES: CODEINE. DISCHARGE PLAN: Posthospital, the patient will follow up with primary care physician. The patient will have digoxin level checked in 1 week. HOSPITAL COURSE: A 64-year-old male with above-mentioned medical problem, who was admitted by Dr. Josh Ferrer. Please see his H and P for further details. The patient was admitted for anasarca. Please see Dr. Ferrer's note for further detail. This patient was DNR in hospital. He is getting his main care at [facility]. We did not have any record in the hospital. He had decubitus ulcer which was initially appeared infected and that is why we started on vancomycin and Zosyn, but subsequently we discontinued antibiotic therapy as cultures remain negative and General Surgery did not think that this patient needs any surgical debridement. He just needs wound care. He had paracentesis for ascites. He was hypotensive while in hospital and that is why we held his diuretic therapy. We also gave him albumin for his renal failure and low blood pressure, and with albumin, his blood pressure has been improved. He had atrial flutter/SVT while in the hospital and that is why Cardiology was following. Echocardiography was done. He was converted to sinus rhythm. He refused to go for ablation procedure while in hospital. Cardiology recommended digoxin therapy because of low blood pressure and he is not tolerating any antihypertensive medication. On discharge, we added Lasix and Aldactone therapy. We also increased midodrine dose while in the hospital. His culture remained negative. He is up to his baseline level. His ascitic fluid culture is negative. SBP ruled out. The patient is back to his baseline level and he wants to go back to [facility]. With help of case assistant, we arranged [facility]. Paperwork for discharge done, discharge medication reconciliation done. Job ID: [id number]
[2019-05-26 14:08] LABS: Smooth Muscle Total ABS 22 Units (0-19)
[2019-05-26 14:31] VITALS: TEMP 97.8
[2019-05-26 17:11] VITALS: BP 101/84
== END 2019-05-26 16:59 | DRG 432 ==
LOC: ERS 07:21 → 2NO 09:28
PROVIDERS: ADMIT Internal Medicine; ATTEND Internal Medicine
PROC: 0W9G3ZZ Drainage of Peritoneal Cavity, Percutaneous Approach (ICD-10-PCS; principal; 2019-05-22)
DX: K70.31 Alcoholic cirrhosis of liver with ascites (principal); L89.153 Pressure ulcer of sacral region, stage 3; G93.41 Metabolic encephalopathy; I47.1 Supraventricular tachycardia; K76.6 Portal hypertension; Z68.41 Body mass index [BMI] 40.0-44.9, adult; K72.90 Hepatic failure, unspecified without coma; R60.1 Generalized edema; E87.6 Hypokalemia; E83.42 Hypomagnesemia; I95.9 Hypotension, unspecified; K21.9 Gastro-esophageal reflux disease without esophagitis; N18.3 Chronic kidney disease, stage 3 (moderate); I12.9 Hypertensive chronic kidney disease with stage 1 through stage 4 chronic kidney disease, or unspecified chronic kidney disease; D63.1 Anemia in chronic kidney disease; Z66 Do not resuscitate; E66.01 Morbid (severe) obesity due to excess calories; R29.6 Repeated falls; F10.20 Alcohol dependence, uncomplicated; Z88.5 Allergy status to narcotic agent; Z79.899 Other long term (current) drug therapy
CPT/HCPCS: 36415; 36416; 49083; 71045; 80048; 80053; 80074; 82103; 82104; 82105; 82140; 82533; 82728; 82805; 83036; 83516; 83540; 83550; 83605; 83735; 84100; 85025; 85060; 85610; 85730; 86038; 86140; 86225; 87070; 87205; 89051; 93005; 93010; 93306; 94640; 94760; 96374; 96375; C9113; J0153; J1160; J1630; J1650; J1940; J2001; J2060; J2543; J3370; J3475; J3490; J7050; J7620; P9047

== ENCOUNTER 2019-06-03 00:21 | Inpatient (IN) | payer MEDICARE ==
[2019-06-03] MEDS ORDERED: Acetaminophen 325 MG TAB PO PRN (02:09)
[2019-06-03 02:35] LABS: #Basophils 0.1 thou/uL (0.0-0.2); #Eosinphils 0.2 thou/uL (0.0-0.7); #Lymphocytes 1.3 thou/uL (1.20-3.40); #Monocytes 1.2 thou/uL (0.11-0.59); #Neutrophils 9.1 thou/uL (1.40-6.50); %Basophils 0.5 % (0.0-1.0); %Eosinophils 1.8 % (0.0-10.0); %Lymphocytes 10.6 % (21.0-51.0); %Neutrophils 77.1 % (42.0-75.0); Mean Corpuscular HGB CONC 32.9 g/dL (32.0-36.0); Mean Corpuscular Hemoglobin 30.8 pg (27.0-31.0); Mean Corpuscular Volume 93.4 fL (78.0-98.0); Mean Platelet Volume 6.2 fL (7.4-10.4); Platelet Count 176 thou/uL (130-400); RBC Distribution Width 12.4 % (11.5-14.5); Red Blood Cell (RBC) Count 3.25 mill/uL (4.70-6.10); White Blood Cell (WBC) Count 11.8 thou/uL (4.8-10.8)
[2019-06-03 02:57] LABS: ALT (SGPT) 14 U/L (8-55); AST (SGOT) 24 U/L (5-34); Albumin 3.5 g/dL (3.4-4.8); Alkaline Phosphatase 118 U/L (40-150); Anion Gap 16 mmol/L (10-20); BUN (Urea Nitrogen) 34 mg/dL (8.4-25.7); Bilirubin, Total 1.2 mg/dL (0.2-1.2); Calc. Creatinine Clearance 0 mL/min (70-130); Calcium 9.6 mg/dL (7.8-10.44); Carbon Dioxide 16 mmol/L (23-31); Chloride 111 mmol/L (98-107); Estimated GFR-MDRD 44; Globulin 2.7 g/dL (2.4-3.5); Glucose 108 mg/dL (80-115); Potassium 4.2 mmol/L (3.5-5.1); Protein, Total 6.2 g/dL (5.8-8.1); Sodium 139 mmol/L (136-145)
--- NOTE | 2019-06-03 03:51 | HP ---
CHIEF COMPLAINT: Altered mental status. HISTORY OF PRESENT ILLNESS: The patient is a 64-year-old male with a past medical history of alcoholic cirrhosis, hypertension, obesity, and sacral wound, who presents to the hospital with altered mental status. Per the ER [place] records, it indicate that the patient had some altered mentation this morning at the correction and that is why he was brought into the hospital for further evaluation. The patient denies any significant complaints, however, this time, he is pretty confused and is unable to provide me a good history. In the ER, the patient was found to have an ammonia of 140s and he was transferred here for further evaluation. PAST MEDICAL HISTORY: This is from records; 1. Alcoholic cirrhosis. 2. Hypertension. 3. Morbid obesity. 4. History of cardiac arrhythmias. 5. Recurrent ascites. 6. Sacral wound stage IV ulcer. 7. CKD. 8. History of falls. PAST SURGICAL HISTORY: He has had multiple paracenteses and tonsillectomy. ALLERGIES: HE IS ALLERGIC TO CODEINE. MEDICATIONS: 1. He is on midodrine 5 mg b.i.d. 2. He is also on Aldactone 75 mg daily. 3. Protonix 40 mg daily. 4. Digoxin 0.125 p.o. daily. 5. He is on lactulose 10 g p.o. daily. SOCIAL HISTORY: [facility]. No history of smoking history. He used to be a former alcoholic, currently no alcohol use. Per records, it state DNAR, however, per the patient's POA is currently not available. We will confirm this with the nursing staff if he has an out of hospital DNR and we will make him a DNR. REVIEW OF SYSTEMS: Unable to be obtained. PHYSICAL EXAMINATION: VITAL SIGNS: As of the following; temperature of 97.9, blood pressure 124/65, heart rate 88, respiratory rate 18, O2 saturation 99% on room air. GENERAL: He is awake, very confused, unable to provide a history. HEENT: Normocephalic, atraumatic. No lymphadenopathy noted. Pupils are equal, reactive to light. CV: S1 and S2 present. No murmurs, rubs, or gallops. LUNGS: Clear to auscultation. No rhonchi or wheezes noted. ABDOMEN: Obese. Bowel sounds are present x2. Significant edema noted on the abdomen. EXTREMITIES: Significant +2 edema to the bilateral lower extremities. NEUROVASCULAR: No focal deficits noted. SKIN: He does have significant erythema to bilateral lower extremities, probably from venous stasis. He does have a decubitus ulcer around his bottom. LABORATORY RESULTS: As of the following; his lactic acid was normal. His INR was 1. WBC of 12.4, hemoglobin of 9.8, hematocrit of 28.4, platelets 92. Urine just indicated trace ketones. Ammonia was 140. BNP was 96. His BUN was 35, creatinine of 1.65, glucose of 129, potassium of 4.3, bilirubin of 0.9. AST and ALT were normal. Albumin was 3.3. Troponin x1 was negative. indicated borderline interstitial prominence and pulmonary vascular congestion. No focal consolidation was noted. The patient did have an EKG and according to my interpretation, appeared to be possible sinus arrhythmia. ASSESSMENT AND PLAN: The patient is a very pleasant 64-year-old male, who presents to the hospital with altered mental status. 1. Acute metabolic encephalopathy, most likely secondary to his underlying cirrhosis versus infectious etiology. I will start the patient on oral lactulose. He was given a dose of lactulose in the ER x1. I will continue that. Also, I will just go ahead and treat him for possible spontaneous bacterial peritonitis. in the past has been negative. He has no abdominal pain. I will start him on ceftriaxone for now. The patient will also need diuresis. He has extensive lower extremity edema and abdominal wall edema, may also require paracentesis. 2. Mild leukocytosis, again possibly could be reactive versus underlying infectious etiology. Chest x-ray did not show anything acute. Urine did not show anything acute. I have put him on prophylaxis antibiotics for possible spontaneous bacterial peritonitis. 3. Decompensated cirrhosis. The patient has significant anasarca, again will need IV diuretics. 4. Mild acute kidney injury. We will continue to monitor. I will be careful with using diuretics since this could worsen his creatinine. 5. Hypertension, currently controlled. We will continue to monitor. 6. Deep venous thrombosis prophylaxis. We will put the patient on subcu heparin. Job ID: [id number]
[2019-06-03 03:58] VITALS: BMI 44.1
[2019-06-03 04:27] LABS: Digoxin 0.56 ng/mL (0.8-2.0)
[2019-06-03] MEDS: cefTRIAXone\\ROCEPHIN 1 GM in Sodium Chloride 0.9% 100 ML IVPB SCH (05:48)
[2019-06-03] MEDS ORDERED: Albumin 25% 25 GM/100 ML BOT IVPB ONE (06:16)
[2019-06-03] MEDS ORDERED: Furosemide 40 MG/4 ML VIAL SLOW IVP SCH (06:30)
[2019-06-03] MEDS ORDERED: Cepastat Lozenges 1 LOZ PO PRN (06:53)
[2019-06-03] MEDS ORDERED: Artificial Tears 18 DROP/0.9 ML EA EYE PRN (06:53)
[2019-06-03] MEDS ORDERED: Diabetic Tussin 200 MG/10 ML UDCUP PO PRN (06:53)
[2019-06-03] MEDS ORDERED: Sodium Chloride 0.65% Nasal 44 ML BOT EA NARE PRN (06:53)
[2019-06-03] MEDS ORDERED: Ondansetron ODT 4 MG TAB PO PRN (06:53)
[2019-06-03] MEDS ORDERED: Ondansetron PF 4 MG/2 ML Vial IVP PRN (06:53)
[2019-06-03] MEDS ORDERED: Calcium Carbonate 500 MG ChewTAB PO PRN (06:53)
[2019-06-03] MEDS ORDERED: hydrALAZINE 20 MG/ML VIAL SLOW IVP PRN (06:53)
[2019-06-03] MEDS ORDERED: Albumin 25% 25 GM/100 ML BOT IVPB SCH (07:30)
[2019-06-03] MEDS ORDERED: Spironolactone 25 MG TAB PO SCH (08:00)
[2019-06-03] MEDS ORDERED: Spironolactone 100 MG TAB PO SCH ×2 (08:00)
[2019-06-03] MEDS ORDERED: Prevnar 13-Val Conj/PF 0.5 ML SYRINGE IM ONE (08:15)
[2019-06-03] MEDS: Heparin 5,000 UNITS/ML VIAL SC SCH ×2 (08:54→21:11)
[2019-06-03] MEDS: Digoxin 0.125 MG TAB PO SCH (08:54)
[2019-06-03] MEDS: Midodrine HCl 5 MG TAB PO SCH ×2 (08:55→21:13)
[2019-06-03] MEDS ORDERED: Heparin 5,000 UNITS/ML VIAL SC SCH (09:00)
[2019-06-03] MEDS ORDERED: Famotidine/PF 20 mg/2ml Vial SLOW IVP SCH (09:00)
--- NOTE | 2019-06-03 12:06 | PDOC.PN ---
- Subjective Encounter Start Date: 06/03/19 Encounter Start Time: 07:30 pt wanted to remove restraint applied last night, he is on room air, he does not report any complaint to me - Objective Resuscitation Status - Order Detail: 06/03/19 02:09 Resuscitation Status Routine Resuscitation Status: FULL: Full Resuscitation MAR Reviewed: Yes Vital Signs & Weight: Vital Signs (12 hours) Temp Pulse Resp BP Pulse Ox 06/03/19 11:59 98.8 F 77 18 126/75 95 06/03/19 08:54 79 06/03/19 07:25 94 L 06/03/19 07:22 98.9 F 79 18 131/61 94 L 06/03/19 03:49 97.1 F L 80 18 120/56 L 99 Weight Weight 298 lb 9.6 oz Result Diagrams: 06/03/19 02:25 06/03/19 02:25 EKG Reviewed by me: Yes Phys Exam - Physical Examination Constitutional: NAD HEENT: PERRLA, sclera anicteric Neck: no nodes, supple, full ROM Respiratory: no wheezing, no rales, no rhonchi limited due to obesity Cardiovascular: RRR, no significant murmur Gastrointestinal: soft ascites+ Musculoskeletal: edema present Neurological: non-focal Lymphatic: no nodes Psychiatric: normal affect Skin: normal turgor Dx/Plan (1) Acute metabolic encephalopathy Code(s): G93.41 - METABOLIC ENCEPHALOPATHY Status: Acute (2) Anasarca Code(s): R60.1 - GENERALIZED EDEMA Status: Acute Comment: due to cirrhosis (3) Alcoholic cirrhosis of liver with ascites Code(s): K70.31 - ALCOHOLIC CIRRHOSIS OF LIVER WITH ASCITES Status: Chronic (4) Anemia, normocytic normochromic Code(s): D64.9 - ANEMIA, UNSPECIFIED Status: Chronic (5) CKD (chronic kidney disease) stage 3, GFR 30-59 ml/min Code(s): N18.3 - CHRONIC KIDNEY DISEASE, STAGE 3 (MODERATE) Status: Chronic (6) Decubitus ulcer, stage 3 with infection Code(s): L89.93 - PRESSURE ULCER OF UNSPECIFIED SITE, STAGE 3; L08.9 - LOCAL INFECTION OF THE SKIN AND SUBCUTANEOUS TISSUE, UNSP Status: Chronic (7) GERD (gastroesophageal reflux disease) Code(s): K21.9 - GASTRO-ESOPHAGEAL REFLUX DISEASE WITHOUT ESOPHAGITIS Status: Chronic (8) Morbid obesity with BMI of 40.0-44.9, adult Code(s): E66.01 - MORBID (SEVERE) OBESITY DUE TO EXCESS CALORIES; Z68.41 - BODY MASS INDEX (BMI) 40.0-44.9, ADULT Status: Chronic - Plan cont current plan of care, continue antibiotics, PT/OT, social contact worker * continue his selected home meds * may need paracentesis therapeutic * pt has end stage liver disease, his prognosis is very poor, palliative care consulted * medication reviewed as below * symptomatic treatment * continue empiric antibiotics for suspected SBP * monitor vitals * will consider dc restraints. * wound care * continue lasix for diuresis Review of Systems - Review of Systems ENT: negative: Ear Pain, Ear Discharge, Nose Pain, Nose Discharge, Nose Congestion, Mouth Pain, Mouth Swelling, Throat Pain, Throat Swelling, Other Respiratory: negative: Cough, Dry, Shortness of Breath, Hemoptysis, SOB with Excertion, Pleuritic Pain, Sputum, Wheezing Cardiovascular: edema. negative: chest pain, palpitations, orthopnea, paroxysmal nocturnal dyspnea, light headedness, other Gastrointestinal: Abdominal Pain. negative: Nausea, Vomiting, Diarrhea, Constipation, Melena, Hematochezia, Other Genitourinary: negative: Dysuria, Frequency, Incontinence, Hematuria, Retention , Other Musculoskeletal: negative: Neck Pain, Shoulder Pain, Arm Pain, Back Pain, Hand Pain, Leg Pain, Foot Pain, Other - Medications/Allergies Allergies/Adverse Reactions: Allergies Allergy/AdvReac Type Severity Reaction Status Date / Time codeine Allergy Verified 05/22/19 11:56 Medications: Current Medications Acetaminophen (Tylenol) 650 mg PO Q8H PRN PRN Reason: Headache/Fever/Mild Pain (1-3) Artificial Tears (Tears Naturale) 2 drop EA EYE PRN PRN PRN Reason: Dry Eyes Calcium Carbonate (Tums) 1,000 mg PO Q4H PRN PRN Reason: Heartburn or Indigestion Digoxin (Lanoxin) 0.125 mg PO DAILY [facility] Last Admin: 06/03/19 08:54 Dose: 0.125 mg Guaifenesin (Robitussin Sf) 200 mg PO Q4H PRN PRN Reason: Cough Heparin Sodium (Porcine) (Heparin) 5,000 units SC BID [facility] Last Admin: 06/03/19 08:54 Dose: 5,000 units Hydralazine HCl (Apresoline) 10 mg SLOW IVP Q4H PRN PRN Reason: SBP > 180 and HR < 70 Ceftriaxone Sodium 1 gm/ (Sodium Chloride) 100 mls @ 200 mls/hr IVPB Q24HR [facility] Last Admin: 06/03/19 05:48 Dose: 100 mls Lactulose (Lactulose) 20 gm PO TID [facility] Last Admin: 06/03/19 08:55 Dose: 20 gm Midodrine (Proamatine) 10 mg PO BID [facility] Last Admin: 06/03/19 08:55 Dose: 10 mg Ondansetron HCl (Zofran Odt) 4 mg PO Q6H PRN PRN Reason: Nausea/Vomiting Ondansetron HCl (Zofran) 4 mg IVP Q6H PRN PRN Reason: Nausea/Vomiting Pantoprazole Sodium (Protonix) 40 mg PO DAILY [facility] Last Admin: 06/03/19 08:55 Dose: 40 mg Sodium Chloride (Flush - Normal Saline) 10 ml IVF Q12HR [facility] Last Admin: 06/03/19 09:18 Dose: 10 ml Sodium Chloride (Flush - Normal Saline) 10 ml IVF PRN PRN PRN Reason: Saline Flush Sodium Chloride ([place] Nasal [place] 0.65%) 0 ml EA NARE QIDPRN PRN PRN Reason: Nasal Congestion Spironolactone (Aldactone) 25 mg PO QAM-WM [facility] Last Admin: 06/03/19 08:55 Dose: 25 mg Throat Lozenges (Cepastat Lozenges) 1 panchito PO Q2H PRN PRN Reason: Sore Throat
[2019-06-03] MEDS: Furosemide 20 MG/2 ML VIAL SLOW IVP SCH (14:59)
[2019-06-03 15:20] LABS: Bilirubin Negative (Negative); Blood, Urine Negative (Negative); Clarity Clear (Clear); Glucose, Urine (Dipstick) Normal (Negative); Leukocyte Negative Leu/uL (Negative); Nitrite Negative (Negative); Protein, Urine (Dipstick) Negative (Neg-Trace); Urobilinogen Normal mg/dL (Less than 2)
[2019-06-04] MEDS: cefTRIAXone\\ROCEPHIN 1 GM in Sodium Chloride 0.9% 100 ML IVPB SCH (03:09)
[2019-06-04 04:17] LABS: #Eosinphils 0.3 thou/uL (0.0-0.7); #Lymphocytes 1.2 thou/uL (1.20-3.40); #Neutrophils 8.5 thou/uL (1.40-6.50); %Basophils 0.4 % (0.0-1.0); %Eosinophils 2.7 % (0.0-10.0); %Lymphocytes 11.1 % (21.0-51.0); %Monocytes 8.7 % (0.0-10.0); %Neutrophils 77.1 % (42.0-75.0); Hemoglobin 9.8 g/dL (14.0-18.0); Mean Corpuscular HGB CONC 32.1 g/dL (32.0-36.0); Mean Corpuscular Hemoglobin 30.3 pg (27.0-31.0); Mean Corpuscular Volume 94.4 fL (78.0-98.0); Mean Platelet Volume 5.9 fL (7.4-10.4); Platelet Count 157 thou/uL (130-400); RBC Distribution Width 12.5 % (11.5-14.5); Red Blood Cell (RBC) Count 3.23 mill/uL (4.70-6.10); White Blood Cell (WBC) Count 11.1 thou/uL (4.8-10.8)
[2019-06-04 04:27] LABS: INR-International Normal Ratio 1.3; PTT 30.4 SEC (22.9-36.1); Prothrombin Time 15.9 SEC (12.0-14.7)
[2019-06-04 04:34] LABS: ALT (SGPT) 12 U/L (8-55); AST (SGOT) 17 U/L (5-34); Albumin 3.3 g/dL (3.4-4.8); Alkaline Phosphatase 101 U/L (40-150); Anion Gap 13 mmol/L (10-20); BUN (Urea Nitrogen) 32 mg/dL (8.4-25.7); Calc. Creatinine Clearance 93 mL/min (70-130); Calcium 9.1 mg/dL (7.8-10.44); Carbon Dioxide 20 mmol/L (23-31); Chloride 110 mmol/L (98-107); Estimated GFR-MDRD 47; Globulin 2.3 g/dL (2.4-3.5); Glucose 110 mg/dL (80-115); Magnesium 1.1 mg/dL (1.6-2.6); Potassium 3.9 mmol/L (3.5-5.1); Protein, Total 5.6 g/dL (5.8-8.1); Sodium 139 mmol/L (136-145)
[2019-06-04] MEDS ORDERED: Magnesium Sulfate 4 GM in Sodium Chloride 0.9% 250 ML 250 ML IVPB SCH (06:00)
[2019-06-04] MEDS: Furosemide 20 MG/2 ML VIAL SLOW IVP SCH ×2 (06:31→15:31)
[2019-06-04] MEDS: Midodrine HCl 5 MG TAB PO SCH ×2 (08:08→21:27)
[2019-06-04] MEDS: Digoxin 0.125 MG TAB PO SCH (08:08)
[2019-06-04] MEDS: Heparin 5,000 UNITS/ML VIAL SC SCH ×2 (08:09→21:27)
[2019-06-04] MEDS: Spironolactone 25 MG TAB PO SCH (08:09)
--- NOTE | 2019-06-04 14:38 | PDOC.PN ---
- Subjective Encounter Start Date: 06/04/19 Encounter Start Time: 09:00 Patient seen and examined. No new complaints. No overnight events - Objective Resuscitation Status - Order Detail: 06/03/19 14:02 Resuscitation Status Routine Resuscitation Status: DNAR: NO Resuscitation Discussed with: discussed with pt and sister MARY Reviewed: Yes Vital Signs & Weight: Vital Signs (12 hours) Temp Pulse Resp BP BP Pulse Ox 06/04/19 12:00 69 06/04/19 08:08 72 06/04/19 08:00 97.5 F L 72 20 132/65 89 L 06/04/19 04:00 98.4 F 86 20 128/61 99 Weight Admit Weight 298 lb Weight 297 lb I&O: 06/03/19 06/04/19 06/05/19 06:59 06:59 06:59 Intake Total 1220 Output Total 2140 Balance -920 Result Diagrams: 06/04/19 04:12 06/04/19 04:12 EKG Reviewed by me: Yes Phys Exam - Physical Examination Constitutional: NAD HEENT: moist MMs, sclera anicteric Neck: supple Respiratory: no wheezing, no rhonchi reduced air entry at base Cardiovascular: RRR, no rub Gastrointestinal: non-tender, positive bowel sounds ascites+ Musculoskeletal: edema present Neurological: non-focal, normal sensation Lymphatic: no nodes Psychiatric: normal affect, A&O x 3 Skin: no rash, normal turgor Dx/Plan (1) Acute metabolic encephalopathy Code(s): G93.41 - METABOLIC ENCEPHALOPATHY Status: Acute (2) Anasarca Code(s): R60.1 - GENERALIZED EDEMA Status: Acute Comment: due to cirrhosis (3) Alcoholic cirrhosis of liver with ascites Code(s): K70.31 - ALCOHOLIC CIRRHOSIS OF LIVER WITH ASCITES Status: Chronic (4) Anemia, normocytic normochromic Code(s): D64.9 - ANEMIA, UNSPECIFIED Status: Chronic (5) CKD (chronic kidney disease) stage 3, GFR 30-59 ml/min Code(s): N18.3 - CHRONIC KIDNEY DISEASE, STAGE 3 (MODERATE) Status: Chronic (6) Decubitus ulcer, stage 3 with infection Code(s): L89.93 - PRESSURE ULCER OF UNSPECIFIED SITE, STAGE 3; L08.9 - LOCAL INFECTION OF THE SKIN AND SUBCUTANEOUS TISSUE, UNSP Status: Chronic (7) GERD (gastroesophageal reflux disease) Code(s): K21.9 - GASTRO-ESOPHAGEAL REFLUX DISEASE WITHOUT ESOPHAGITIS Status: Chronic (8) Morbid obesity with BMI of 40.0-44.9, adult Code(s): E66.01 - MORBID (SEVERE) OBESITY DUE TO EXCESS CALORIES; Z68.41 - BODY MASS INDEX (BMI) 40.0-44.9, ADULT Status: Chronic - Plan cont current plan of care, continue antibiotics * continue diuresis * continue rocephin * therapeutic paracentesis. * transfer to medical * medication reviewed as below * symptomatic treatment. * wound care * rectal tube care Review of Systems - Review of Systems ENT: negative: Ear Pain, Ear Discharge, Nose Pain, Nose Discharge, Nose Congestion, Mouth Pain, Mouth Swelling, Throat Pain, Throat Swelling, Other Respiratory: SOB with Excertion. negative: Cough, Dry, Shortness of Breath, Hemoptysis, Pleuritic Pain, Sputum, Wheezing Cardiovascular: edema. negative: chest pain, palpitations, orthopnea, paroxysmal nocturnal dyspnea, light headedness, other Gastrointestinal: negative: Nausea, Vomiting, Abdominal Pain, Diarrhea, Constipation, Melena, Hematochezia, Other Genitourinary: negative: Dysuria, Frequency, Incontinence, Hematuria, Retention , Other Musculoskeletal: negative: Neck Pain, Shoulder Pain, Arm Pain, Back Pain, Hand Pain, Leg Pain, Foot Pain, Other - Medications/Allergies Allergies/Adverse Reactions: Allergies Allergy/AdvReac Type Severity Reaction Status Date / Time codeine Allergy Verified 05/22/19 11:56 Medications: Current Medications Acetaminophen (Tylenol) 650 mg PO Q8H PRN PRN Reason: Headache/Fever/Mild Pain (1-3) Artificial Tears (Tears Naturale) 2 drop EA EYE PRN PRN PRN Reason: Dry Eyes Calcium Carbonate (Tums) 1,000 mg PO Q4H PRN PRN Reason: Heartburn or Indigestion Digoxin (Lanoxin) 0.125 mg PO DAILY [facility] Last Admin: 06/04/19 08:08 Dose: 0.125 mg Furosemide (Lasix) 20 mg SLOW IVP 0600,1400 [facility] Last Admin: 06/04/19 06:31 Dose: 20 mg Guaifenesin (Robitussin Sf) 200 mg PO Q4H PRN PRN Reason: Cough Heparin Sodium (Porcine) (Heparin) 5,000 units SC BID [facility] Last Admin: 06/04/19 08:09 Dose: 5,000 units Hydralazine HCl (Apresoline) 10 mg SLOW IVP Q4H PRN PRN Reason: SBP > 180 and HR < 70 Ceftriaxone Sodium 1 gm/ (Sodium Chloride) 100 mls @ 200 mls/hr IVPB Q24HR [facility] Last Admin: 06/04/19 03:09 Dose: 100 mls Lactulose (Lactulose) 20 gm PO TID [facility] Last Admin: 06/04/19 08:09 Dose: 20 gm Midodrine (Proamatine) 10 mg PO BID [facility] Last Admin: 06/04/19 08:08 Dose: 10 mg Ondansetron HCl (Zofran Odt) 4 mg PO Q6H PRN PRN Reason: Nausea/Vomiting Ondansetron HCl (Zofran) 4 mg IVP Q6H PRN PRN Reason: Nausea/Vomiting Pantoprazole Sodium (Protonix) 40 mg PO DAILY [facility] Last Admin: 06/04/19 08:08 Dose: 40 mg Sodium Chloride (Flush - Normal Saline) 10 ml IVF Q12HR [facility] Last Admin: 06/04/19 09:22 Dose: 10 ml Sodium Chloride (Flush - Normal Saline) 10 ml IVF PRN PRN PRN Reason: Saline Flush Sodium Chloride ([place] Nasal [place] 0.65%) 0 ml EA NARE QIDPRN PRN PRN Reason: Nasal Congestion Spironolactone (Aldactone) 50 mg PO QAM-WM [facility] Last Admin: 06/04/19 08:09 Dose: 50 mg Throat Lozenges (Cepastat Lozenges) 1 panchito PO Q2H PRN PRN Reason: Sore Throat
[2019-06-05] MEDS: cefTRIAXone\\ROCEPHIN 1 GM in Sodium Chloride 0.9% 100 ML IVPB SCH (03:35)
[2019-06-05] MEDS: Furosemide 20 MG/2 ML VIAL SLOW IVP SCH ×2 (05:27→14:47)
[2019-06-05 06:08] LABS: #Eosinphils 0.3 thou/uL (0.0-0.7); #Lymphocytes 1.3 thou/uL (1.20-3.40); #Monocytes 1.1 thou/uL (0.11-0.59); #Neutrophils 7.5 thou/uL (1.40-6.50); %Basophils 0.1 % (0.0-1.0); %Eosinophils 2.9 % (0.0-10.0); %Monocytes 10.3 % (0.0-10.0); %Neutrophils 73.7 % (42.0-75.0); Hemoglobin 9.8 g/dL (14.0-18.0); Mean Corpuscular HGB CONC 31.6 g/dL (32.0-36.0); Mean Corpuscular Hemoglobin 29.5 pg (27.0-31.0); Mean Corpuscular Volume 93.5 fL (78.0-98.0); Mean Platelet Volume 6.3 fL (7.4-10.4); Platelet Count 155 thou/uL (130-400); RBC Distribution Width 12.9 % (11.5-14.5); Red Blood Cell (RBC) Count 3.31 mill/uL (4.70-6.10); White Blood Cell (WBC) Count 10.2 thou/uL (4.8-10.8)
[2019-06-05 06:34] LABS: ALT (SGPT) 12 U/L (8-55); AST (SGOT) 17 U/L (5-34); Albumin 3.2 g/dL (3.4-4.8); Alkaline Phosphatase 106 U/L (40-150); Anion Gap 12 mmol/L (10-20); BUN (Urea Nitrogen) 34 mg/dL (8.4-25.7); Bilirubin, Total 0.7 mg/dL (0.2-1.2); Calc. Creatinine Clearance 93 mL/min (70-130); Calcium 8.8 mg/dL (7.8-10.44); Carbon Dioxide 20 mmol/L (23-31); Chloride 109 mmol/L (98-107); Estimated GFR-MDRD 46; Globulin 2.4 g/dL (2.4-3.5); Glucose 107 mg/dL (80-115); Magnesium 1.6 mg/dL (1.6-2.6); Potassium 4.1 mmol/L (3.5-5.1); Protein, Total 5.6 g/dL (5.8-8.1); Sodium 137 mmol/L (136-145)
[2019-06-05] MEDS ORDERED: Sodium Bicarbonate 2.5 MEQ/5 ML VIAL ONE (08:13)
--- NOTE | 2019-06-05 09:23 | ULT ---
Sonographic guided paracentesis HISTORY: Tense ascites. Dyspnea. FINDINGS: After explaining the procedure and answering all questions, sonographic survey shows large amount of free fluid within the abdomen. Sterile technique, buffered local anesthesia, sonographic guidance and a left lower quadrant approach were used to carefully advance a 19-gauge Yueh needle and catheter into the free fluid. Catheter was left to drain a total volume of 4.0 L slightly cloudy yellow liquid. Drainage was limited to 4 L given that patient had only 1 paracentesis in the past, at 3 L. Catheter was removed. Patient tolerated the procedure well and was returned in improved condition. IMPRESSION: Technically successful sonographic guided paracentesis.
[2019-06-05] MEDS: Midodrine HCl 5 MG TAB PO SCH ×2 (09:48→21:16)
[2019-06-05] MEDS: Spironolactone 25 MG TAB PO SCH (09:49)
[2019-06-05] MEDS: Digoxin 0.125 MG TAB PO SCH (09:50)
[2019-06-05] MEDS: Heparin 5,000 UNITS/ML VIAL SC SCH ×2 (09:51→21:17)
--- NOTE | 2019-06-05 10:47 | PDOC.PN ---
- Subjective Encounter Start Date: 06/05/19 Encounter Start Time: 09:45 today pt had paracentesis and 4 liter fluid removed, Patient seen and examined. No overnight events - Objective Resuscitation Status - Order Detail: 06/03/19 14:02 Resuscitation Status Routine Resuscitation Status: DNAR: NO Resuscitation Discussed with: discussed with pt and sister MARY Reviewed: Yes Vital Signs & Weight: Vital Signs (12 hours) Temp Pulse Resp BP Pulse Ox 06/05/19 09:50 68 06/05/19 07:27 97.9 F 66 19 109/62 98 Weight Admit Weight 298 lb Weight 300 lb 1 oz I&O: 06/04/19 06/05/19 06/06/19 06:59 06:59 06:59 Intake Total 1220 480 Output Total 2140 690 Balance -920 -210 Result Diagrams: 06/05/19 05:55 06/05/19 05:55 Phys Exam - Physical Examination Constitutional: NAD HEENT: PERRLA, sclera anicteric Neck: no JVD, supple Respiratory: no wheezing, no rales, no rhonchi Cardiovascular: RRR, no significant murmur, no rub Gastrointestinal: soft, non-tender, positive bowel sounds ascites+ Musculoskeletal: pulses present, edema present Neurological: non-focal, normal sensation Lymphatic: no nodes Psychiatric: normal affect, A&O x 3 Skin: normal turgor Dx/Plan (1) Acute metabolic encephalopathy Code(s): G93.41 - METABOLIC ENCEPHALOPATHY Status: Acute (2) Anasarca Code(s): R60.1 - GENERALIZED EDEMA Status: Acute Comment: due to cirrhosis (3) Alcoholic cirrhosis of liver with ascites Code(s): K70.31 - ALCOHOLIC CIRRHOSIS OF LIVER WITH ASCITES Status: Chronic (4) Anemia, normocytic normochromic Code(s): D64.9 - ANEMIA, UNSPECIFIED Status: Chronic (5) CKD (chronic kidney disease) stage 3, GFR 30-59 ml/min Code(s): N18.3 - CHRONIC KIDNEY DISEASE, STAGE 3 (MODERATE) Status: Chronic (6) Decubitus ulcer, stage 3 with infection Code(s): L89.93 - PRESSURE ULCER OF UNSPECIFIED SITE, STAGE 3; L08.9 - LOCAL INFECTION OF THE SKIN AND SUBCUTANEOUS TISSUE, UNSP Status: Chronic (7) GERD (gastroesophageal reflux disease) Code(s): K21.9 - GASTRO-ESOPHAGEAL REFLUX DISEASE WITHOUT ESOPHAGITIS Status: Chronic (8) Morbid obesity with BMI of 40.0-44.9, adult Code(s): E66.01 - MORBID (SEVERE) OBESITY DUE TO EXCESS CALORIES; Z68.41 - BODY MASS INDEX (BMI) 40.0-44.9, ADULT Status: Chronic - Plan cont current plan of care, drug abuse social worker * medication reviewed as below * symptomatic treatment * continue rocephin * continue lasix and aldactone * wound care * usp prognosis poor * high risk for recurrent admission, palliative care on case. Review of Systems - Review of Systems ENT: negative: Ear Pain, Ear Discharge, Nose Pain, Nose Discharge, Nose Congestion, Mouth Pain, Mouth Swelling, Throat Pain, Throat Swelling, Other Respiratory: negative: Cough, Dry, Shortness of Breath, Hemoptysis, SOB with Excertion, Pleuritic Pain, Sputum, Wheezing Cardiovascular: negative: chest pain, palpitations, orthopnea, paroxysmal nocturnal dyspnea, edema, light headedness, other Gastrointestinal: Abdominal Pain. negative: Nausea, Vomiting, Diarrhea, Constipation, Melena, Hematochezia, Other Genitourinary: negative: Dysuria, Frequency, Incontinence, Hematuria, Retention , Other Musculoskeletal: negative: Neck Pain, Shoulder Pain, Arm Pain, Back Pain, Hand Pain, Leg Pain, Foot Pain, Other - Medications/Allergies Allergies/Adverse Reactions: Allergies Allergy/AdvReac Type Severity Reaction Status Date / Time codeine Allergy Verified 05/22/19 11:56 Medications: Current Medications Acetaminophen (Tylenol) 650 mg PO Q8H PRN PRN Reason: Headache/Fever/Mild Pain (1-3) Artificial Tears (Tears Naturale) 2 drop EA EYE PRN PRN PRN Reason: Dry Eyes Calcium Carbonate (Tums) 1,000 mg PO Q4H PRN PRN Reason: Heartburn or Indigestion Digoxin (Lanoxin) 0.125 mg PO DAILY [facility] Last Admin: 06/05/19 09:50 Dose: 0.125 mg Furosemide (Lasix) 20 mg SLOW IVP 0600,1400 [facility] Last Admin: 06/05/19 05:27 Dose: 20 mg Guaifenesin (Robitussin Sf) 200 mg PO Q4H PRN PRN Reason: Cough Heparin Sodium (Porcine) (Heparin) 5,000 units SC BID [facility] Last Admin: 06/05/19 09:51 Dose: 5,000 units Hydralazine HCl (Apresoline) 10 mg SLOW IVP Q4H PRN PRN Reason: SBP > 180 and HR < 70 Ceftriaxone Sodium 1 gm/ (Sodium Chloride) 100 mls @ 200 mls/hr IVPB Q24HR [facility] Last Admin: 06/05/19 03:35 Dose: 100 mls Lactulose (Lactulose) 20 gm PO TID [facility] Last Admin: 06/05/19 09:48 Dose: 20 gm Midodrine (Proamatine) 10 mg PO BID [facility] Last Admin: 06/05/19 09:48 Dose: 10 mg Ondansetron HCl (Zofran Odt) 4 mg PO Q6H PRN PRN Reason: Nausea/Vomiting Ondansetron HCl (Zofran) 4 mg IVP Q6H PRN PRN Reason: Nausea/Vomiting Pantoprazole Sodium (Protonix) 40 mg PO DAILY [facility] Last Admin: 06/05/19 09:50 Dose: 40 mg Sodium Chloride (Flush - Normal Saline) 10 ml IVF Q12HR [facility] Last Admin: 06/04/19 21:28 Dose: 10 ml Sodium Chloride (Flush - Normal Saline) 10 ml IVF PRN PRN PRN Reason: Saline Flush Sodium Chloride ([place] Nasal [place] 0.65%) 0 ml EA NARE QIDPRN PRN PRN Reason: Nasal Congestion Spironolactone (Aldactone) 50 mg PO QAM-WM [facility] Last Admin: 06/05/19 09:49 Dose: 50 mg Throat Lozenges (Cepastat Lozenges) 1 panchito PO Q2H PRN PRN Reason: Sore Throat
--- NOTE | 2019-06-05 11:32 | PDOC.PALCO ---
Palliative Care Consult - Consult Details Requesting Physician: Dr Sanchez ([facility], [place]) Reason for Consult: goals of care, assistance with communication prognosis/ disease - Pertinent HPI 64 male that was previously discharged to [facility] for care of chronic IV sacral wound. Alcoholic Cirrhosis, hypertension, obesity. Recent transfer to the er was secondary to altered mental status. Patient was admitted for further evaluation /ammonia of140 - Pertinent PMH Alcoholic Cirrhosis, hypertension, Morbid Obesity, Cardiac Arrhythmias,chronic ascites, Sacral wound stage IV chronic, CKD. - Social History Smoking Status: Never smoker Alcohol Use: heavy, last drink (Patient reports last drink in February2019) Drug Use History: none Living Situation: senior care resident - Medications MAR Reviewed: Yes - Allergies Allergies/Adverse Reactions: Allergies Allergy/AdvReac Type Severity Reaction Status Date / Time codeine Allergy Verified 05/22/19 11:56 - Subjective Chronically ill appearing. Stage IV Sacrum. Awake, alert, appears to have a delay in thought pattern - Objective Vital Signs: Vital Signs - Most Recent Temp Pulse Resp BP Pulse Ox 97.9 F 68 19 109/62 98 06/05/19 07:27 06/05/19 09:50 06/05/19 07:27 06/05/19 07:27 06/05/19 07:27 Palliative Performance Scale: 40 - Physical Exam Deviation from normal: chronically ill appearing, pallor HEENT: moist MMs, EOMI Respiratory: unlabored breathing Deviation from normal: distended, tympani on percussion Musculoskeletal: edema present Neurological: moves all 4 limbs Deviation from normal: Mildly aggitated, depressed Deviation from normal: poor turgor,brusing in various stages of healing - Problem List (1) Palliative care encounter Code(s): Z51.5 - ENCOUNTER FOR PALLIATIVE CARE Current Visit: Yes Status: Acute - Plan/Recommendations Plan: Initiated conversation with patient. Patient states he does not think he has a fragile state of health. He recently has resided at [facility] for care secondary to his sacral wound needing daily care. Mr Montemayor states he stopped taking his Lactulose recently as he did not like the increase in bowel movements. Thus,he had an altered mental status as a result of elevation of ammonia. Discussed his co-morbid conditions and disease trajectory. Patient lacks acceptance in the severity of his health status. Patient states that he wishes to have his sacral wound heal to that he only needs it cared for 3 times a week and would like to return to his private home in [place]. Plan: *Continue to educate in relation to disease trajectory *Reinforce compliancy of medications to prevent readmission *Continue to educate in regard to measures of patients goal to return home if wound does not heal and continued need for paracentisis (Home health vs hospice) Aura Miller Palliative Care RN and myself will continue to follow. Dr Live notified. [60] minutes spent on this encounter with >50% of the time in counseling and coordination of care. Thank you for this very appropriate consult.
[2019-06-05 12:43] LABS: BF Color Yellow; Body Fluid Source Ascites Body Fluid; Clarity Hazy (Clear)
[2019-06-05 12:44] LABS: BF RBC Count - Manual 151 /cumm; BF WBC/Nonhematics Ct. - Manua 106 /cumm; Tube # EDTA
[2019-06-05 12:52] LABS: Eosinophils 1 %; Lymphocytes 30 %
[2019-06-05 12:54] LABS: BF Segmented Neutrophils 13 %; Cell Count Non Hematic 56 %
[2019-06-06] MEDS: cefTRIAXone\\ROCEPHIN 1 GM in Sodium Chloride 0.9% 100 ML IVPB SCH (04:03)
[2019-06-06] MEDS: Furosemide 20 MG/2 ML VIAL SLOW IVP SCH ×2 (06:30→13:44)
[2019-06-06] MEDS: Midodrine HCl 5 MG TAB PO SCH (07:42)
[2019-06-06] MEDS: Digoxin 0.125 MG TAB PO SCH (07:43)
[2019-06-06] MEDS: Heparin 5,000 UNITS/ML VIAL SC SCH (07:43)
[2019-06-06] MEDS: Spironolactone 25 MG TAB PO SCH (07:43)
[2019-06-06 08:27] VITALS: TEMP 97.5
--- NOTE | 2019-06-06 11:03 | PDOC.PN ---
- Subjective Encounter Start Date: 06/06/19 Encounter Start Time: 09:20 Patient seen and examined. No new complaints. No overnight events - Objective Resuscitation Status - Order Detail: 06/03/19 14:02 Resuscitation Status Routine Resuscitation Status: DNAR: NO Resuscitation Discussed with: discussed with pt and sister MARY Reviewed: Yes Vital Signs & Weight: Vital Signs (12 hours) Temp Pulse Resp BP 06/06/19 08:26 97.5 F L 72 20 107/60 06/06/19 07:43 70 Weight Admit Weight 298 lb Weight 300 lb 1 oz I&O: 06/05/19 06/06/19 06/07/19 06:59 06:59 06:59 Intake Total 480 1220 Output Total 690 1400 Balance -210 -180 Result Diagrams: 06/05/19 05:55 06/05/19 05:55 Phys Exam - Physical Examination Constitutional: NAD HEENT: PERRLA, moist MMs, sclera anicteric Neck: no JVD, supple Respiratory: no wheezing, no rales, no rhonchi Cardiovascular: RRR, no significant murmur Gastrointestinal: soft ascites+ Musculoskeletal: pulses present, edema present Neurological: non-focal, normal sensation Lymphatic: no nodes Psychiatric: normal affect, A&O x 3 Skin: no rash, normal turgor Dx/Plan (1) Acute metabolic encephalopathy Code(s): G93.41 - METABOLIC ENCEPHALOPATHY Status: Acute (2) Anasarca Code(s): R60.1 - GENERALIZED EDEMA Status: Acute Comment: due to cirrhosis (3) Alcoholic cirrhosis of liver with ascites Code(s): K70.31 - ALCOHOLIC CIRRHOSIS OF LIVER WITH ASCITES Status: Chronic (4) Anemia, normocytic normochromic Code(s): D64.9 - ANEMIA, UNSPECIFIED Status: Chronic (5) CKD (chronic kidney disease) stage 3, GFR 30-59 ml/min Code(s): N18.3 - CHRONIC KIDNEY DISEASE, STAGE 3 (MODERATE) Status: Chronic (6) Decubitus ulcer, stage 3 with infection Code(s): L89.93 - PRESSURE ULCER OF UNSPECIFIED SITE, STAGE 3; L08.9 - LOCAL INFECTION OF THE SKIN AND SUBCUTANEOUS TISSUE, UNSP Status: Chronic (7) GERD (gastroesophageal reflux disease) Code(s): K21.9 - GASTRO-ESOPHAGEAL REFLUX DISEASE WITHOUT ESOPHAGITIS Status: Chronic (8) Morbid obesity with BMI of 40.0-44.9, adult Code(s): E66.01 - MORBID (SEVERE) OBESITY DUE TO EXCESS CALORIES; Z68.41 - BODY MASS INDEX (BMI) 40.0-44.9, ADULT Status: Chronic - Plan cont current plan of care, plan discussed w/ family, continue antibiotics, group social worker * medication reviewed as below * symptomatic treatment * continue rocephin * continue lasix, aldactone, lactulose * discharge soon. Review of Systems - Review of Systems Eyes: negative: Pain, Vision Change, Conjunctivae Inflammation, Eyelid Inflammation, Redness, Other ENT: negative: Ear Pain, Ear Discharge, Nose Pain, Nose Discharge, Nose Congestion, Mouth Pain, Mouth Swelling, Throat Pain, Throat Swelling, Other Respiratory: negative: Cough, Dry, Shortness of Breath, Hemoptysis, SOB with Excertion, Pleuritic Pain, Sputum, Wheezing Cardiovascular: edema. negative: chest pain, palpitations, orthopnea, paroxysmal nocturnal dyspnea, light headedness, other Gastrointestinal: negative: Nausea, Vomiting, Abdominal Pain, Diarrhea, Constipation, Melena, Hematochezia, Other Genitourinary: negative: Dysuria, Frequency, Incontinence, Hematuria, Retention , Other Musculoskeletal: negative: Neck Pain, Shoulder Pain, Arm Pain, Back Pain, Hand Pain, Leg Pain, Foot Pain, Other - Medications/Allergies Allergies/Adverse Reactions: Allergies Allergy/AdvReac Type Severity Reaction Status Date / Time codeine Allergy Verified 05/22/19 11:56 Medications: Current Medications Acetaminophen (Tylenol) 650 mg PO Q8H PRN PRN Reason: Headache/Fever/Mild Pain (1-3) Artificial Tears (Tears Naturale) 2 drop EA EYE PRN PRN PRN Reason: Dry Eyes Calcium Carbonate (Tums) 1,000 mg PO Q4H PRN PRN Reason: Heartburn or Indigestion Digoxin (Lanoxin) 0.125 mg PO DAILY [facility] Last Admin: 06/06/19 07:43 Dose: 0.125 mg Furosemide (Lasix) 20 mg SLOW IVP 0600,1400 [facility] Last Admin: 06/06/19 06:30 Dose: 20 mg Guaifenesin (Robitussin Sf) 200 mg PO Q4H PRN PRN Reason: Cough Heparin Sodium (Porcine) (Heparin) 5,000 units SC BID [facility] Last Admin: 06/06/19 07:43 Dose: 5,000 units Hydralazine HCl (Apresoline) 10 mg SLOW IVP Q4H PRN PRN Reason: SBP > 180 and HR < 70 Ceftriaxone Sodium 1 gm/ (Sodium Chloride) 100 mls @ 200 mls/hr IVPB Q24HR [facility] Last Admin: 06/06/19 04:03 Dose: 100 mls Lactulose (Lactulose) 20 gm PO DAILY [facility] Last Admin: 06/06/19 07:43 Dose: 20 gm Midodrine (Proamatine) 10 mg PO BID [facility] Last Admin: 06/06/19 07:42 Dose: 10 mg Ondansetron HCl (Zofran Odt) 4 mg PO Q6H PRN PRN Reason: Nausea/Vomiting Ondansetron HCl (Zofran) 4 mg IVP Q6H PRN PRN Reason: Nausea/Vomiting Pantoprazole Sodium (Protonix) 40 mg PO DAILY [facility] Last Admin: 06/06/19 07:42 Dose: 40 mg Sodium Chloride (Flush - Normal Saline) 10 ml IVF Q12HR [facility] Last Admin: 06/06/19 07:43 Dose: 10 ml Sodium Chloride (Flush - Normal Saline) 10 ml IVF PRN PRN PRN Reason: Saline Flush Sodium Chloride ([place] Nasal [employer] 0.65%) 0 ml EA NARE QIDPRN PRN PRN Reason: Nasal Congestion Spironolactone (Aldactone) 50 mg PO QAM-WM [facility] Last Admin: 06/06/19 07:43 Dose: 50 mg Throat Lozenges (Cepastat Lozenges) 1 panchito PO Q2H PRN PRN Reason: Sore Throat
--- NOTE | 2019-06-06 13:11 | DIS ---
DATE OF ADMISSION: 06/03/2019 DATE OF DISCHARGE: 06/06/2019 DISCHARGE DISPOSITION: [facility]. PRIMARY DISCHARGE DIAGNOSES: Hepatic encephalopathy, refractory ascites, status post paracentesis, and hypomagnesemia. SECONDARY DISCHARGE DIAGNOSES: Chronic anasarca; severe tricuspid regurgitation; pulmonary hypertension; morbid obesity with BMI of 44; cirrhosis of liver with refractory ascites; gastroesophageal reflux disease; decubitus ulcer, stage IV; chronic kidney disease, stage 3; normocytic normochromic anemia; physical deconditioning. PRIMARY PROCEDURE/OPERATION: Paracentesis. Radiological investigation, paracentesis ultrasound. SIGNIFICANT LABORATORY DATA: Hemoglobin 9.8. INR 1.3. Creatinine 1.5. Urinalysis normal. Ascitic fluid negative for any SBP. Digoxin 0.56. DISCHARGE MEDICATIONS: 1. Lotrimin topical application b.i.d. 2. Digoxin 0.125 mg p.o. daily. 3. Lasix 40 mg daily. 4. Lactulose 20 g p.o. daily. 5. Midodrine 5 mg b.i.d. 6. Protonix 40 mg daily. 7. Aldactone 100 mg p.o. daily. CONTRAINDICATION: None. CODE STATUS: DNR. INPATIENT CORRECTIVE THERAPY AIDE TEACHER: None. ALLERGIES: CODEINE. DISCHARGE PLAN: Posthospital, the patient will follow up with primary care physician at [facility]. HOSPITAL COURSE: A 64-year-old male with the above-mentioned medical problems, who was admitted by Dr. Yesica Sanchez. Please see her H and P for further details. This patient had recent admission for anasarca and this time, he was brought from senior care to hospital because he was having increasing ascites and increasing edema. He was taking diuretic therapy, but that was not responding. During this admission, we tried to give him diuretic therapy with IV, without any significant response and that is why we did therapeutic paracentesis and 4 L of fluid was removed, that fluid was negative for SBP. This patient was given empiric Rocephin. He was also having hepatic encephalopathy with high ammonia and that is why we treated him with lactulose with improvement. This patient also has chronic decubitus ulcer and Wound Care team was following. During this admission, we reduced midodrine to 5 mg b.i.d. and rest of the medications were continued as per previous. I have seen and examined the patient at bedside today. Paperwork for discharge done. Discharge medication reconciliation done. This patient wants to go back to senior care because he has eye appointment. I spoke with the patient's sister, who is medical power of cash processing specialist, and she agreed to let him go back to senior care. This patient is continuously high risk for recurrent admission and that is why we recommended him for as-needed paracentesis through [facility] versus our emergency room as an outpatient basis or versus observation status and get paracentesis done and discharge. This patient had paperwork done for [id number] DNR. While in the hospital, he has DNR status. His prognosis is poor. Overall, the patient is medically stable for discharge today. Job ID: [id number]
[2019-06-06 13:33] VITALS: BP 100/61
== END 2019-06-06 16:02 | DRG 432 ==
LOC: ERS 00:21 → 2NO 01:20 → T4-B 03:14
PROVIDERS: ADMIT Internal Medicine; ATTEND Internal Medicine
PROC: 0W9G30Z Drainage of Peritoneal Cavity with Drainage Device, Percutaneous Approach (ICD-10-PCS; principal; 2019-06-05)
DX: K70.31 Alcoholic cirrhosis of liver with ascites (principal); L89.154 Pressure ulcer of sacral region, stage 4; G93.41 Metabolic encephalopathy; N17.9 Acute kidney failure, unspecified; Z66 Do not resuscitate; Z68.41 Body mass index [BMI] 40.0-44.9, adult; K72.90 Hepatic failure, unspecified without coma; E66.01 Morbid (severe) obesity due to excess calories; I12.9 Hypertensive chronic kidney disease with stage 1 through stage 4 chronic kidney disease, or unspecified chronic kidney disease; R29.6 Repeated falls; D63.1 Anemia in chronic kidney disease; E83.42 Hypomagnesemia; Z51.5 Encounter for palliative care; N18.3 Chronic kidney disease, stage 3 (moderate); K21.9 Gastro-esophageal reflux disease without esophagitis; Z79.899 Other long term (current) drug therapy; Z88.5 Allergy status to narcotic agent
CPT/HCPCS: 36415; 49083; 80053; 80162; 81003; 82140; 83735; 84100; 85025; 85060; 85610; 85730; 87070; 87205; 89051; 99285; J0696; J1644; J1940; J3475; J3490; J7050; P9047